=== PATIENT | female | born 1955 | race Hispanic/Latino ===

== ENCOUNTER 2018-09-05 15:50 | Emergency (ER) | payer OTHER ==
--- OUTSIDE RECORDS SUMMARY | 2018-09-05 15:51 | XMS REPORT ---
:1955 Author Organization eClinicalWorks Care Team Providers Name Role Phone Thompson, Na Provider Role Unavailable Allergies, Adverse Reactions, Alerts Substance Reaction Event Type N.K.D.A. 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 Problem Mixed hyperlipidemia E78.2 Active Problem BMI 26.0-26.9,adult Z68.26 Active Assessment On statin therapy Z79.899 Active Problem On statin therapy Z79.899 Active Assessment Hemoglobin A1C greater than 9%, R73.09 Active indicating poor diabetic control Problem Osteoarthritis of multiple joints, M15.9 Active unspecified osteoarthritis type Problem Hyperglycemia R73.9 Active Problem Fatty liver K76.0 Active Problem Hemoglobin A1C greater than 9%, R73.09 Active indicating poor diabetic control Problem Essential hypertension I10 Active Assessment Fatty liver K76.0 Active Assessment Osteoarthritis of multiple joints, M15.9 Active unspecified osteoarthritis type Assessment BMI 26.0-26.9,adult Z68.26 Active Assessment Hyperglycemia R73.9 Active Assessment 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 Assessment Type 2 diabetes mellitus with E11.41 Active diabetic mononeuropathy Assessment Mixed hyperlipidemia E78.2 Active Assessment Essential hypertension I10 Active Problem Type 2 diabetes mellitus with E11.41 Active diabetic mononeuropathy Medications Medication Code Code Instructions Start End Status Dosage System Date Date Diclofenac ND 49677386233 1 % Transdermal Jul 01, Active as directed Sodium twice a day as 2018 needed for pain Metformin HCl ND 17312527819 1000 MG Orally February Active 1 tablet twice a day 2017 with a meal Trulicity ND 92550725981 0.75mg/0.5ml SQ Jul 18, Active one once a week 2018 injection Lantus SoloStar ND 33911747168 100 UNIT/ML April 15, Active 50 units Subcutaneous 2018 once a day Gabapentin ND 33521683483 100 MG Orally Active 1 capsule Three times a day Cozaar [facility] 15376821950 50 MG Orally Active 1 tablet Once a day Lipitor [facility] 41214533702 20 MG Orally Active 1 tablet Once a day Glimepiride [facility] 87072734107 4 MG Orally April 15, Active 1 tablet Once a day 2017 with breakfast or the first main meal of the day Results No Known Results Summary Purpose eClinicalWorks Submission
--- OUTSIDE RECORDS SUMMARY | 2018-09-05 15:51 | XMS REPORT ---
:1955 Author Organization [employer]Works Care Team Providers Name Role Phone Thompson, Hamida Provider Role Unavailable Allergies, Adverse Reactions, Alerts Substance Reaction Event Type N.K.D.A. Info Not Available Non Drug Allergy Problems Problem Type Condition Code Onset Dates Condition Status Problem BMI 26.0-26.9,adult Z68.26 Active Problem Hemoglobin A1C greater than 9%, R73.09 Active indicating poor diabetic control Problem Osteoarthritis of multiple joints, M15.9 Active unspecified osteoarthritis type Problem Cervicalgia M54.2 Active Assessment Elevated blood pressure reading I10 Active with diagnosis of hypertension Problem Seasonal allergies J30.2 Active Assessment Cervicalgia M54.2 Active Assessment Seasonal allergies J30.2 Active Problem Acute effusion of left ear H65.192 Active Problem Benign paroxysmal positional H81.13 Active vertigo, bilateral Problem On statin therapy Z79.899 Active Problem History of fall Z91.81 Active Problem Elevated blood pressure reading I10 Active with diagnosis of hypertension Problem Diabetes mellitus type 2 in E11.9 Active nonobese Assessment Acute effusion of left ear H65.192 Active Assessment Benign paroxysmal positional H81.13 Active vertigo, bilateral Problem Fatty liver K76.0 Active Problem Hyperglycemia R73.9 Active Assessment BMI 27.0-27.9,adult Z68.27 Active Problem Mixed hyperlipidemia E78.2 Active Problem Essential hypertension I10 Active Assessment History of fall Z91.81 Active 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 Problem Type 2 diabetes mellitus with E11.41 Active diabetic mononeuropathy Medications Medication Code Code Instructions Start End Status Dosage System Date Date Cozaar [facility] 06624168272 50 MG Orally Active 1 tablet Once a day Lipitor ND 05677245047 20 MG Orally Active 1 tablet Once a day Trulicity ND 67609447825 0.75mg/0.5ml SQ Jul 18, Active one once a week 2017 injection Gabapentin ND 04376458694 100 MG Orally Active 1 capsule Three times a day Diclofenac [facility] 16203779068 1 % Transdermal Aug 06, Active as directed Sodium twice a day as 2018 needed for pain Meclizine HCl [facility] 57422400397 25 MG Orally Aug 09, Active 1 tablet as twice a day 2017 needed Lantus SoloStar [facility] 46503086278 100 UNIT/ML April 15, Active 50 units Subcutaneous 2017 once a day Glimepiride [facility] 42122607720 4 MG Orally April 15, Active 1 tablet Once a day 2017 with breakfast or the first main meal of the day Metformin HCl [facility] 21447187367 1000 MG Orally February Active 1 tablet twice a day 2017 with a meal Cetirizine HCl [facility] 99734654325 10 MG Orally Aug 09, Active 1 tablet Once a day 2017 Flonase [facility] 21027687393 50 MCG/ACT Aug 09, Active 2 spray in Nasally Once a 2018 each nostril day Results No Known Results Summary Purpose eClinicalWorks Submission
--- OUTSIDE RECORDS SUMMARY | 2018-09-05 15:51 | XMS REPORT ---
:1955 Author Organization [employer]Works Care Team Providers Name Role Phone Thompson, Na Provider Role Unavailable Allergies, Adverse Reactions, Alerts Substance Reaction Event Type N.K.D.A. Info Not Available Non Drug Allergy Problems Problem Type Condition Code Onset Dates Condition Status Assessment Essential hypertension I10 Active Assessment Type 2 diabetes mellitus with E11.41 Active diabetic mononeuropathy Assessment snf current use of insulin Z79.4 Active Problem Hyperglycemia R73.9 Active Problem Fatty liver K76.0 Active Problem Essential hypertension I10 Active Problem Diabetes mellitus type 2 in nonobese E11.9 Active Problem Type 2 diabetes mellitus with E11.41 Active diabetic mononeuropathy Problem snf current use of insulin Z79.4 Active Problem Mixed hyperlipidemia E78.2 Active Assessment Hyperglycemia R73.9 Active Assessment Fatty liver K76.0 Active Assessment Mixed hyperlipidemia E78.2 Active Medications Medication Code Code Instructions Start End Status Dosage System Date Date Cozaar [facility] 15587604130 50 MG Orally Active 1 tablet Once a day Glimepiride ND 92463072665 4 MG Orally April 15, Active 1 tablet Once a day 2017 with breakfast or the first main meal of the day Gabapentin ND 10497579020 100 MG Orally Active 1 capsule Three times a day Metformin HCl ND 45761032848 1000 MG Orally February Active 1 tablet twice a day 2017 with a meal Lipitor ND 84291325522 20 MG Orally Active 1 tablet Once a day Lantus SoloStar ND 28831567661 100 UNIT/ML April 15, Active as directed Subcutaneous 55 2018 units Results No Known Results Summary Purpose eClinicalWorks Submission
--- NOTE | 2018-09-05 16:33 | RAD REPORT ---
EXAM DESCRIPTION: CT - Head Brain Wo Cont - 09/05/2018 4:24 pm CLINICAL HISTORY: Headache COMPARISON: None. TECHNIQUE: Computed axial tomography of the head was obtained. IV contrast was not requested. All CT scans are performed using dose optimization technique as appropriate and may include automated exposure control or mA/KV adjustment according to patient size. FINDINGS: An intracranial bleed is not seen . The ventricles are normal in caliber. No extra-axial fluid collection is noted. Fluid within the sinuses/ mastoids is not seen. IMPRESSION: No acute intracranial abnormality is seen. If patient's symptoms persist MRI of the bra in would be recommended.
--- NOTE | 2018-09-05 16:36 | RAD REPORT ---
EXAM DESCRIPTION: Shakir Single View09/05/2018 4:31 pm CLINICAL HISTORY: fever COMPARISON: none FINDINGS: The lungs appear clear of acute infiltrate. The heart is normal size IMPRESSION: No acute abnormalities displayed
[2018-09-05] MEDS ORDERED: MORPHINE 4 MG/ML SYR ONE (17:10)
[2018-09-05] MEDS ORDERED: ONDANSETRON 4 MG/2 ML VIAL ONE (17:10)
[2018-09-05 17:25] LABS: Absolute Lymphocytes (CBC) 2.7 K/uL (0.7-4.9); Absolute Monocytes 1.1 K/uL (0.1-1.3); Absolute Neutrophil 9.9 K/uL (1.8-8.0); Basophils % 0.8 % (0-1.3); Eosinophils % 0.5 % (0-4.4); Hematocrit 37.7 % (36.0-45.0); Lymphocytes % 19.7 % (15.3-44.8); MCH 29.5 pg (27.0-35.0); MCV 85.8 fL (80-100); MPV 11.8 fL (7.6-11.3); Monocytes % 8.1 % (3.3-12.3)
[2018-09-05 17:37] LABS: Potassium 3.8 mmol/L (3.5-5.1)
[2018-09-05] MEDS ORDERED: VANCOMYCIN 1 GM/250 ML BAG ONE (18:31)
[2018-09-05 18:48] LABS: Urine Blood TRACE (NEG); Urine Glucose NEGATIVE (NEG); Urine Protein 1+ (NEG); Urine pH 5.5 (5.0-7.0)
[2018-09-05 19:38] LABS: CSF Glucose 78 mg/dL (40-70)
[2018-09-05 19:41] LABS: Appearance CLEAR (CLEAR); Body Fluid Source CSF; Color of fluid Colorless (COLORLESS)
[2018-09-05 19:42] LABS: Body Fluid WBC 0 /mm^3
[2018-09-05 19:43] LABS: Appearance CLEAR (CLEAR); Body Fluid Source CSF; Body Fluid WBC 0 /mm^3; Color of fluid Colorless (COLORLESS); Fluid Total Volume 4.5 ml
[2018-09-05] MEDS ORDERED: CEFTRIAXONE/SWI 1gm 1 GM/10 ML SYR ONE (20:44)
--- NOTE | 2018-09-05 20:53 | ER ---
Nurse's Notes [facility] Name: Rowan Stubbs Age: 63 yrs Sex: Female : 1955 Arrival Date: 09/05/2018 Time: 15:52 Bed 25 Private MD: Hamida Thompson Diagnosis: Strain of muscle, fascia and tendon at neck level;Urinary tract infection, site not specified Presentation: 09/05 15:56 Presenting complaint: Patient states: neck pain/stiffness, fever. Sent by Dr Thompson's sv office, flu (-). Transition of care: patient was not received from another setting of care. Onset of symptoms was September 03, 2018. Care prior to arrival: None. 15:56 Method Of Arrival: Ambulatory sv 15:56 Acuity: GUICHO 3 sv 16:05 Risk Assessment: Do you want to hurt yourself or someone else? Patient reports no kr2 desire to harm self or others. Initial Sepsis Screen: Does the patient meet any 2 criteria? No. Patient's initial sepsis screen is negative. Does the patient have a suspected source of infection? No. Patient's initial sepsis screen is negative. Triage Assessment: 16:05 Headache History: The patient has had previous headaches and this one is different than kr2 previous episodes. General: Appears in no apparent distress. uncomfortable, Behavior is calm, cooperative, appropriate for age. Pain: Pain began Sunday Also complains of inability to perform activities of daily living. Pain: Complains of pain in neck Pain radiates to back of head. Historical: - Allergies: 15:59 PENICILLINS; sv - PMHx: 15:59 Diabetes - IDDM; chronic back pain; insomnia; fatty liver; Hyperlipidemia; sv osteoarthritis; allergic rhinitis; - PSHx: 15:59 Right shoulder surgery; Hernia repair; ; breast; ovarian cyst removed; sv Hysterectomy; - Immunization history:: Adult Immunizations unknown. - Social history:: Smoking status: Patient/guardian denies using tobacco. - Ebola Screening: : No symptoms or risks identified at this time. Screenin:05 Abuse screen: Denies threats or abuse. Denies injuries from another. Nutritional kr2 screening: No deficits noted. Tuberculosis screening: No symptoms or risk factors identified. Fall Risk None identified. Assessment: 16:05 General: Appears in no apparent distress. uncomfortable, well groomed, well developed, kr2 well nourished. Pain: Complains of pain in neck Pain radiates to back of head Pain currently is 10 out of 10 on a pain scale. Quality of pain is described as aching, tender, Is continuous, Alleviated by rest, Aggravated by increased activity, repositioning. Neuro: Level of Consciousness is awake, alert, obeys commands, Oriented to person, place, time, situation, Certified Pharmacy Technician are equal bilaterally Moves all extremities. Gait is steady, Speech is normal, Facial symmetry appears normal, Pupils are PERRLA, Intact. Cardiovascular: Capillary refill < 3 seconds in bilateral fingers Patient's skin is warm and dry. Respiratory: Airway is patent Respiratory effort is even, unlabored, Respiratory pattern is regular, symmetrical. Respiratory: Reports cough that is non-productive, since Sunday. GI: Abdomen is flat, non-distended, Patient currently denies nausea, vomiting. : Denies burning with urination. EENT: Oral mucosa is moist. Derm: Skin is intact, is healthy with good turgor, Skin is pink, warm \T\ dry. Musculoskeletal: Circulation, motion, and sensation intact. 16:20 Reassessment: Patient taken to CT by gameroom technician at this time. kr2 17:30 Reassessment: Patient appears in no apparent distress at this time. Patient and/or kr2 family updated on plan of care and expected duration. Pain level reassessed. Patient is alert, oriented x 3, equal unlabored respirations, skin warm/dry/pink. Pain decreased. 17:44 Reassessment: Tran Patel NP performing LP at this time. Vanc to be started when LP is kr2 completed. 18:36 Reassessment: Patient appears in no apparent distress at this time. Patient and/or kr2 family updated on plan of care and expected duration. Pain level reassessed. Patient is alert, oriented x 3, equal unlabored respirations, skin warm/dry/pink. Patient states she does not need any pain medication at this time. Patient lying flat at this time after LP completed Patient states symptoms have improved. 19:33 Reassessment: Patient appears in no apparent distress at this time. Patient and/or kr2 family updated on plan of care and expected duration. Pain level reassessed. Patient is alert, oriented x 3, equal unlabored respirations, skin warm/dry/pink. Patient states symptoms have improved. 20:43 Reassessment: Patient appears in no apparent distress at this time. Patient and/or kr2 family updated on plan of care and expected duration. Pain level reassessed. Patient is alert, oriented x 3, equal unlabored respirations, skin warm/dry/pink. Vital Signs: 16:00 BP 156 / 58; Pulse 83; Resp 18; Temp 99.4(TE); Pulse Ox 98% ; Weight 62.6 kg; Height 4 sv ft. 11 in. (149.86 cm); 17:44 BP 164 / 60; Pulse 95; Resp 17; Pulse Ox 95% on R/A; kr2 18:36 BP 145 / 57; Pulse 77; Resp 17; Pulse Ox 99% ; kr2 19:33 BP 147 / 60; Pulse 77; Resp 17; Pulse Ox 96% on R/A; kr2 20:42 BP 130 / 59; Pulse 78; Resp 17; Pulse Ox 99% ; kr2 16:00 Body Mass Index 27.87 (62.60 kg, 149.86 cm) sv ED Course: 15:52 Patient arrived in ED. as 15:52 Mable Kelsey MD is Private Physician. as 15:52 Hamida Thompson MD is Private Physician. as 15:58 Triage completed. sv 15:59 Arm band placed on. sv 16:05 Patient has correct armband on for positive identification. Placed in gown. Bed in low kr2 position. Call light in reach. Side rails up X 1. Adult w/ patient. Pulse ox on. NIBP on. Door closed. Verbal reassurance given. Head of bed elevated. 16:10 Maik Baig MD is Attending Physician. kdr 16:18 Ema Hector, JERI is Primary Nurse. kr2 16:24 CT completed. Patient tolerated procedure well. Patient moved to CT. Patient moved back from CT. 16:25 CT Head Brain wo Cont In Process Unspecified. EDMS 16:32 CXR XRAY In Process Unspecified. EDMS 17:00 Inserted saline lock: 20 gauge in left antecubital area, using aseptic technique. Blood kr2 collected. 17:00 First set of blood cultures drawn by me. kr2 17:15 Second set of blood cultures drawn by me. kr2 17:20 Consent for a lumbar puncture explained by staff, explained by physician, signed by kr2 patient. 18:07 Assist provider with lumbar puncture: Set up LP tray. Performed by Mina Patel NP jp3 CSF is clear. Sample collected. Puncture site dressed with band aid, Procedure was successful. Patient tolerated well. 19:30 Jersey Melendez PA is PHCP. cp 20:51 Hamida Thompson MD is Referral Physician. cp 21:17 IV discontinued, intact, bleeding controlled, No redness/swelling at site. Pressure kr2 dressing applied. Administered Medications: 17:07 Drug: morphine 4 mg Route: IVP; Site: left antecubital; kr2 17:30 Follow up: Response: No adverse reaction; Pain is decreased kr2 17:08 Drug: Zofran 4 mg Route: IVP; Site: left antecubital; kr2 17:30 Follow up: Response: No adverse reaction kr2 18:25 Drug: vancoMYCIN 1 grams Route: IVPB; Infused Over: 2 hrs; Site: left antecubital; kr2 20:30 Follow up: Response: No adverse reaction; IV Status: Completed infusion kr2 20:41 Drug: Rocephin - (cefTRIAXone) 1 grams Route: IVPB; Infused Over: 30 mins; Site: left kr2 antecubital; 21:14 Follow up: Response: No adverse reaction; IV Status: Completed infusion kr2 21:16 Drug: TORadol 30 mg Route: IVP; Site: left antecubital; kr2 21:16 Follow up: Response: Medication administered at discharge. kr2 Outcome: 20:52 Discharge ordered by . cp 21:17 Discharged to home via wheelchair, with family. kr2 21:17 Condition: good 21:17 Discharge instructions given to patient, family, Instructed on discharge instructions, follow up and referral plans. medication usage, Demonstrated understanding of instructions, follow-up care, medications, Prescriptions given X 4. 21:20 Patient left the ED. kr2 Addendum: 09/09/2018 07:41 Addendum: Culture Results: Positive urine culture. No further action required. Bacteria h b sensitive to prescribed antibiotic. Signatures: Dispatcher [employer] Brittney Tee RN RN sv Rittger, Kevin, MD MD kdr Jones, Susan sj Martinez, Amelia as Jersey Melendez PA PA cp Baxter, Heather, RN RN Ema Hector RN RN kr2 Edilson Mcintyre jp3 Corrections: (The following items were deleted from the chart) 09/05 18:31 17:44 Reassessment: Tran Patel NP performing LP at this time kr2 kr2 18:37 18:36 Reassessment: Patient appears in no apparent distress at this time. Patient kr2 and/or family updated on plan of care and expected duration. Pain level reassessed. Patient is alert, oriented x 3, equal unlabored respirations, skin warm/dry/pink. Patient states she does not need any pain medication at this time Patient states symptoms have improved. kr2
--- NOTE | 2018-09-05 20:53 | EDPHYS ---
Physician Documentation [facility] Name: Rowan Stubbs Age: 63 yrs Sex: Female : 1955 Arrival Date: 09/05/2018 Time: 15:52 Bed 25 Private MD: Hamida Thompson ED Physician Maik Baig HPI: 09/05 16:30 This 63 yrs old Female presents to ER via Ambulatory with complaints of Fever, cp Headache, Stiff Neck. 16:30 The patient reports fever, not measured (subjective). cp 16:30 Onset: The symptoms/episode began/occurred 2 day(s) ago. Associated signs and symptoms: cp Pertinent positives: headache, neck stiffness. Severity of symptoms: in the emergency department the symptoms are unchanged despite home interventions. Patient referred from office of DR Thompson to r/o meningitis. Historical: - Allergies: 15:59 PENICILLINS; sv - PMHx: 15:59 Diabetes - IDDM; chronic back pain; insomnia; fatty liver; Hyperlipidemia; sv osteoarthritis; allergic rhinitis; - PSHx: 15:59 Right shoulder surgery; Hernia repair; ; breast; ovarian cyst removed; sv Hysterectomy; - Immunization history:: Adult Immunizations unknown. - Social history:: Smoking status: Patient/guardian denies using tobacco. - Ebola Screening: : No symptoms or risks identified at this time. ROS: 16:35 Constitutional: Negative for fever, poor PO intake. cp 16:35 Eyes: Negative for injury, pain, redness, and discharge. cp 16:35 Neck: Positive for stiffness. 16:35 Cardiovascular: Negative for chest pain, edema, palpitations. 16:35 Respiratory: Negative for cough, shortness of breath, wheezing. 16:35 Neuro: Positive for headache, Negative for altered mental status. 16:35 All other systems are negative. Exam: 16:40 Constitutional: The patient appears in no acute distress, alert, awake, cp non-diaphoretic, well developed, well nourished. 16:40 Head/Face: Normocephalic, atraumatic. cp 16:40 Eyes: Periorbital structures: appear normal, Pupils: equal, round, and reactive to light and accomodation, Conjunctiva: normal, no exudate, no injection, Sclera: no appreciated abnormality, Lids and lashes: appear normal, bilaterally. 16:40 ENT: External ear(s): are unremarkable, Nose: is normal, Mouth: Lips: moist, Oral mucosa: moist, Posterior pharynx: is normal, airway is patent, Voice: is normal. 16:40 Neck: ROM/movement: pain, that is moderate, limited range of motion, is not appreciated. 16:40 Chest/axilla: Inspection: normal, Palpation: is normal, no crepitus, no tenderness. 16:40 Cardiovascular: Rate: normal, Rhythm: regular. 16:40 Respiratory: the patient does not display signs of respiratory distress, Respirations: normal, no use of accessory muscles, no retractions, no splinting, no tachypnea, labored breathing, is not present, Breath sounds: are clear throughout, no decreased breath sounds, no stridor, no wheezing. 16:40 Abdomen/GI: Inspection: abdomen appears normal, Palpation: abdomen is soft and non-tender, in all quadrants. 16:40 Skin: cellulitis, is not appreciated, no rash present. 16:40 Neuro: Orientation: to person, place \T\ time. Mentation: lucid, able to follow commands, Motor: moves all fours, strength is normal, Sensation: no obvious gross deficits. Vital Signs: 16:00 BP 156 / 58; Pulse 83; Resp 18; Temp 99.4(TE); Pulse Ox 98% ; Weight 62.6 kg; Height 4 sv ft. 11 in. (149.86 cm); 17:44 BP 164 / 60; Pulse 95; Resp 17; Pulse Ox 95% on R/A; kr2 18:36 BP 145 / 57; Pulse 77; Resp 17; Pulse Ox 99% ; kr2 19:33 BP 147 / 60; Pulse 77; Resp 17; Pulse Ox 96% on R/A; kr2 20:42 BP 130 / 59; Pulse 78; Resp 17; Pulse Ox 99% ; kr2 16:00 Body Mass Index 27.87 (62.60 kg, 149.86 cm) sv Procedures: 18:20 Lumbar Puncture: Patient placed in right lateral decubitus position. Prepped with pm1 Betadine. Draped using sterile technique. Collected 4 ml's of clear fluid. Sample sent to lab. Puncture site dressed with band aid, Patient tolerated well. MDM: 19:30 Patient medically screened. cp 20:05 Data reviewed: vital signs, nurses notes, lab test result(s), radiologic studies, CT cp scan, plain films. 09/05 16:12 Order name: CBC with Diff kdr 09/05 16:12 Order name: Chem 7 kdr 09/05 16:12 Order name: Blood Culture Adult (2) kdr 09/05 16:12 Order name: Urine Culture kdr 09/05 16:12 Order name: CBC with Automated Diff; Complete Time: 19:21 EDNV 09/05 20:01 Interpretation: Normal except: WBC 13.9; MPV 11.8. 09/05 16:12 Order name: Basic Metabolic Panel; Complete Time: 19:21 EDMS 09/05 19:31 Interpretation: Normal except: GLUC 123; GFR 84. 09/05 16:12 Order name: CXR XRAY; Complete Time: 17:11 kdr 09/05 16:12 Order name: CT Head Brain wo Cont; Complete Time: 17:11 kdr 09/05 17:57 Order name: Urine Dipstick--Ancillary (enter results); Complete Time: 19:21 eb 09/05 20:01 Interpretation: Normal except: UBLD TRACE; UPROT 1+; U NIT POSITIVE; UESTR 1+. 09/05 18:18 Order name: CSF Bacterial Antigens (tube 1); Complete Time: 20:00 pm1 09/05 18:18 Order name: Csf Culture [facility] 09/05 18:18 Order name: Fluid Cell Count,Body; Complete Time: 20:00 pm1 09/05 18:18 Order name: Spinal Fluid Profile; Complete Time: 20:00 pm1 09/05 20:01 Interpretation: Normal except: CSF GLUC 78. 09/05 19:31 Order name: Urine Microscopic Only; Complete Time: 02:48 09/06 02:48 Interpretation: Normal except: UBACT LOADED. 09/05 16:12 Order name: Urine Dipstick-Ancillary (obtain specimen); Complete Time: 17:29 kdr 09/05 16:49 Order name: Lumbar Puncture Setup; Complete Time: 17:23 kdr 09/05 16:49 Order name: Lumbar Puncture Consent; Complete Time: 17:23 kdr Administered Medications: 17:07 Drug: morphine 4 mg Route: IVP; Site: left antecubital; kr2 17:30 Follow up: Response: No adverse reaction; Pain is decreased kr2 17:08 Drug: Zofran 4 mg Route: IVP; Site: left antecubital; kr2 17:30 Follow up: Response: No adverse reaction kr2 18:25 Drug: vancoMYCIN 1 grams Route: IVPB; Infused Over: 2 hrs; Site: left antecubital; kr2 20:30 Follow up: Response: No adverse reaction; IV Status: Completed infusion kr2 20:41 Drug: Rocephin - (cefTRIAXone) 1 grams Route: IVPB; Infused Over: 30 mins; Site: left kr2 antecubital; 21:14 Follow up: Response: No adverse reaction; IV Status: Completed infusion kr2 21:16 Drug: TORadol 30 mg Route: IVP; Site: left antecubital; kr2 21:16 Follow up: Response: Medication administered at discharge. kr2 Disposition: 09/05/18 20:52 Discharged to Home. Impression: Strain of muscle, fascia and tendon at neck level, Urinary tract infection, site not specified. - Condition is Stable. - Discharge Instructions: Musculoskeletal Pain, Urinary Tract Infection, Adult. - Prescriptions for Anaprox DS 550 mg Oral Tablet - take 1 tablet by ORAL route every 12 hours As needed; 20 tablet. Cyclobenzaprine 10 mg Oral Tablet - take 1 tablet by ORAL route every 8 hours As needed no driving while taking medication; 20 tablet. Bactrim DS 800- 160 mg Oral Tablet - take 1 tablet by ORAL route every 12 hours for 7 days; 14 tablet. Tramadol 50 mg Oral Tablet - take 1 tablet by ORAL route every 8 hours as needed; 12 tablet. - Medication Reconciliation Form, Thank You Letter, Antibiotic Education, Prescription Opioid Use form. - Follow up: Hamida Thompson MD; When: 2 - 3 days; Reason: Recheck today's complaints. - Problem is new. - Symptoms have improved. Addendum: 09/07/2018 13:38 Co-signature as Attending Physician, Maik Baig MD I agree with the assessment and k dr plan of care. Signatures: Dispatcher [employer] EDBrittney Valerio RN RN sv Rittger, Kevin, MD MD kdr [place] Melendez PA PA cp Mina Patel, CONTACT [employer] CONTACT [employer]FFER pm1 Ema Hector RN RN kr2 Corrections: (The following items were deleted from the chart) 09/05 21:20 20:52 09/05/2018 20:52 Discharged to Home. Impression: Strain of muscle, fascia and kr2 tendon at neck level; Urinary tract infection, site not specified. Condition is Stable. Forms are Medication Reconciliation Form, Thank You Letter, Antibiotic Education, Prescription Opioid Use. Follow up: Hamida Thompson; When: 2 - 3 days; Reason: Recheck today's complaints. Problem is new. Symptoms have improved. cp
[2018-09-05] MEDS ORDERED: KETOROLAC 30 MG/ML INJ ONE (21:15)
[2018-09-05 21:47] LABS: Urine Bacteria LOADED /HPF (<20); Urine Culture Reflex Order REFLEXED; Urine RBC NONE SEEN /HPF (NONE SEEN)
== END 2018-09-05 21:20 | disposition home or self-care (01) ==
LOC: ER 15:50
PROC: 009U3ZX Drainage of Spinal Canal, Percutaneous Approach, Diagnostic (ICD-10-PCS; principal; 2018-09-05)
DX: N39.0 Urinary tract infection, site not specified (principal); S16.1XXA Strain of muscle, fascia and tendon at neck level, initial encounter; Z88.0 Allergy status to penicillin
CPT/HCPCS: 36415; 62270 ×2; 70450; 71045; 80048; 82945; 84157; 85025; 86403 ×6; 87040 ×2; 87070; 87077; 87086; 87088; 87186; 89050 ×2; 96365; 96366; 96367; 96375; 99285; J0696; J2405; J3370; 81003; 81015

== ENCOUNTER 2023-04-28 13:39 | Inpatient (IN) | payer OTHER ==
--- OUTSIDE RECORDS SUMMARY | 2023-04-28 13:47 | XMS REPORT | Continuity of Care Document ---
:1955 Author Organization [facility] t Address [address] [place] [address] Care Team Providers Name Role Phone NELDA DUQUE Primary Care Physician Unavailable Lucy Ramirez Attending Clinician Unavailable Nelda Duque Attending Clinician Unavailable Hamida Thompson L Attending Clinician Unavailable GUY WALSH Attending Clinician Unavailable Guy Walsh MD Attending Clinician RADIOLOGY Attending Clinician Unavailable Radiology Attending Clinician Unavailable CLAY DRUMMOND Attending Clinician Unavailable Doctor Unassigned, [place] Attending Clinician Unavailable Ava Conner DDS Attending Clinician AVA CONNER Attending Clinician Unavailable Emily Harrell RN Attending Clinician Unavailable GABRIEL ROCHA Attending Clinician Unavailable Gabriel Jarvis S Attending Clinician Maik Tinajero Attending Clinician MAIK LEWIS Attending Clinician Unavailable GUY WALSH Admitting Clinician Unavailable AVA CONNER Admitting Clinician Unavailable Ava Conner DDS Admitting Clinician MAIK LEWIS Admitting Clinician Unavailable Payers Payer Name Policy Type Policy Number Effective Date Expiration Date caden [facility] [id number] 2017spring [facility] [id number] 2020 Common Sp alisson ing [id number] Common Sp alisson ing Medicare 00:00:00 [facility] Problems Condition Condition Condition Status Onset Resolution Last Treating Co mments Source Name Details Category Date Date Treatment Clinician Date Facial Facial Disease Active Univers abscess abscess 4-14 ity of 00:00: [place] 00 Medical Branch Uncontroll Uncontroll Disease Active 2014-11 U nivers ed type 2 ed type 2 2-14 ity of diabetes diabetes 00:00: [place] mellitus mellitus 00 Medica l Branch [id number] long-term Problem Com mon (current) Spirit use of - CHI insulin [facility] [id number] Osteoarthr Problem Co mmon itis of Spirit spine with - CHI radiculopa [facility] lumbar Medical region Center [id number] History of Problem Co mmon fall [facility] [id number] Essential Problem Comm on hypertensi Spirit on - [facility] [id number] Cervicalgi Problem Com mon a [facility] [id number] Hyperglyce Problem Com mon feliz [facility] [id number] 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 [facility] kidney Medical complicati Center on [id number] Fatty Problem Common liver [facility] [id number] 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 Spirit [facility], [facility] d cataract type [id number] Diabetic Problem Comm on retinopath Spirit y - CHI associated St with type [facility] 2 diabetes Medica l mellitus, Center macular edema presence unspecifie d, unspecifie d laterality , unspecifie d retinopath y severity [id number] Glaucoma, Problem Comm on unspecifie Spirit d glaucoma - CHI type, St unspecie [facility] Medical laterality Center [id number] Stress at Problem Com mon home Spirit [facility] [id number] Proteinuri Problem Com mon a, Spirit unspecifie - CHI d [facility] Type 2 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 - CHI with with St moderate moderate [facility] 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 eyes without without macular macular edema, edema, unspecifie unspecifie d long d penitentiary term insulin insulin use status use status [id number] Irregular Problem Com mon heart Spirit beats - [facility] [id number] Celiac Problem Commo n [id number] artery Spirit stenosis - [facility] [id number] PUD Problem Common (peptic Spirit ulcer - CHI disease) [facility] Chronic Chronic Problem Common back pain back pain Spir it - CHI [facility] Visual Vision Problem Common testing screen Spirit normal without - CHI abnormal [facility] Osteoarthr Osteoarthr Problem C ommon itis itis [facility] [id number] Elevated Problem Commo n blood [facility] pressure - [facility] reading [facility] hypertensi on [id number] Benign Problem Common paroxysmal Spirit positional - [facility] vertigo, [facility] Seasonal Seasonal Problem Commo n allergy allergies [facility] [id number] Mixed Problem Common hyperlipid Spirit emia - [facility] [id number] Acute Problem Common effusion [facility] of left - CHI ear [facility] [id number] Diabetes Problem Comm on mellitus Spirit type 2 in - [facility] nonobese [facility] [id number] Type 2 Problem Common diabetes Spirit mellitus - CHI with [facility] Hyperlipid Hyperlipid Problem C ommon emia emia [facility] [id number] Sciatica, Problem Co mmon [id number] right side Spiri t - [facility] Allergic Allergic Problem Commo n rhinitis rhinitis [facility] Type II Type 2 Problem Common diabetes diabetes [facility] Ins[facility] Insomnia Problem Commo n Spirit - CHI [facility] [id number] Screening Problem Com mon for Spirit malignant - CHI neoplasm [facility] 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 - CHI diabetes associated St mellitus with type [facility] 2 diabetes Medica l mellitus Center [id number] Sciatica, Problem Comm on left side Spirit - [facility] [id number] On statin Problem Com mon therapy Spirit - [facility] [id number] Varicose Problem Commo n veins of [facility] bilateral - CHI lower [facility] s with Medical pain Center [id number] Hemoglobin Problem C ommon [id number] A1C [facility] greater - CHI than 9%, [facility] Medical diabetic Center control [id number] Hip Pain Problem Commo n in [facility] unspecifie - CHI d hip [facility] Osteoarthr Osteoarthr Problem C ommon itis of itis of [facility] multiple multiple - CHI joints joints, [facility] d Medical osteoarthr Center itis type [id number] Lumbago Problem Commo n with Spirit sciatica, - CHI left side [facility] [id number] BMI Problem Common 26.0-26.9, [facility] adult - [facility] [id number] Influenza Problem Co mmon 9109 vaccinatio [facility] n - [facility] administer ed at [facility] current Medical visit Center [id number] Lumbago Problem Comm on with Spirit sciatica, - CHI right side [facility] Vaginal Vaginal Problem Common dryness dryness [facility] [id number] Non Problem Common compliance [facility] w - [facility] medication [facility] Allergies, Adverse Reactions, Alerts Allergy Allergy Status Severity Reaction(s) Onset Inactive Treating Comm ents Source Name Type Date Date Clinician Penicill Propensi Active Hives Univer s ins ty to 309 ity of adverse 00:00: [place] reaction 00 Medical s Branch PENICILL Drug Active Hives Univers INS Class 3-09 ity of 00:00: [place] [address] Medical Branch Penicill Propensi Active Hives Univer s ins ty to 309 ity of adverse 00:00: [place] reaction 00 Medical s [place] Social History Social Habit Start Date Stop Date Quantity Comments Source History of Common Spirit - Tobacco Use [facility] Sex Assigned At Common Sp alisson - [facility] Alcohol intake 2022-06-01 2022-06-01 Current University of 00:00:00 00:00:00 non-drinker of [facility] alcohol Branch (finding) Exposure to 2022-03-07 2022-03-17 Not sure University of SARS-CoV-2 00:00:00 13:43:00 [place] Medical (event) Branch Smoking Status Start Date Stop Date Source Never Smoker Common [facility] Medications Ordered Filled Start Stop Current Ordering Indication Dosage Frequency Signature Comments Components Source Medication Medication Date Date Medication? Clinician (SIG) Name Name Insulin Insulin No BID Insulin Syringe 31G Syringe 31G 2-03 Syringe X 5/16" 0.5 X 5/16" 0.5 00:00: 31G X ML ML 00 5/16" 0.5 ML iopamidol 2022- No [id number] 64mL 64 mL, U nivers (ISOVUE 1-27 Intravenou ity o f 370-500 mL) 20:45: 19:42 s, ONCE, 1 [place] injection 00 :00 dose, On Medica l 64 mL Fri Branch 12/22/22 at 1445, Routine metoclopram 0 Yes [id number] 10mg Take 1 Univers king HCl 10 -27 tablet by ity of mg tablet 00:00: mouth 00 every 6 Medical (six) Branch hours. dicyclomine Yes [id number] 20mg Take 1 Univers 20 mg -27 tablet by ity of tablet 00:00: mouth 4 00 (four) Medical times Branch daily. aspirin 81 2022-0 Yes [id number] 1{capsu Take 1 Univers mg Cap -27 le} capsule by ity of 00:00: mouth 00 daily. Medical Branch Vitamin D3 Vitamin D3 0 No 2{table QD Vitamin D3 50 MCG 50 MCG 7-13 t} 50 MCG (1999) (1999) 00:00: (1999) Calcium 600 Calcium 600 2021-0 No QD Calcium MG MG 7-13 600 MG 00:00: 00 Calcium 600 Calcium 600 2021-0 No QD Calcium MG MG 7-13 600 MG 00:00: 00 Vitamin D3 Vitamin D3 2021-0 No 2{table QD Vitamin D3 50 MCG 50 MCG 7-13 t} 50 MCG (1999) (1999) 00:00: (1999) Vitamin D3 Vitamin D3 2021-0 No 2{table QD Vitamin D3 50 MCG 50 MCG 7-13 t} 50 MCG (1999) (1999) 00:00: (1999) 00 Calcium 600 Calcium 600 2021-0 No QD Calcium MG MG 7-13 600 MG 00:00: 00 Vitamin D3 Vitamin D3 2022-0 No 2{table QD Vitamin D3 50 MCG 50 MCG 7-13 t} 50 MCG (1999) (1999) 00:00: (1999) 00 Calcium 600 Calcium 600 2-0 No QD Calcium MG MG 7-13 600 MG 00:00: 00 Vitamin D3 Vitamin D3 2022-0 No 2{table QD Vitamin D3 50 MCG 50 MCG 7-13 t} 50 MCG (1999) (1999) 00:00: (1999) 00 Calcium 600 Calcium 600 2-0 No QD Calcium MG MG 7-13 600 MG 00:00: 00 Calcium 600 Calcium 600 2-0 No QD Calcium MG MG 7-13 600 MG 00:00: 00 Vitamin D3 Vitamin D3 2-0 No 2{table QD Vitamin D3 50 MCG 50 MCG 7-13 t} 50 MCG (1999) (1999) 00:00: (1999) 00 Calcium 600 Calcium 600 2-0 No QD Calcium MG MG 7-13 600 MG 00:00: 00 Vitamin D3 Vitamin D3 2-0 No 2{table QD Vitamin D3 50 MCG 50 MCG 7-13 t} 50 MCG (1999) (1999) 00:00: (1999) 00 Calcium 600 Calcium 600 2-0 No QD Calcium MG MG 7-13 600 MG 00:00: 00 Vitamin D3 Vitamin D3 2-0 No 2{table QD Vitamin D3 50 MCG 50 MCG 7-13 t} 50 MCG (1999) (1999) 00:00: (1999) 00 Trulicity Trulicity 2021- No Trulicity 0.75 0.75 6-29 12-25 0.75 MG/0.5ML MG/0.5ML 00:00: 00:00 MG/0.5ML 00 :00 Trulicity Trulicity 2021-0 2021- No Trulicity 0.75 0.75 6-29 12-25 0.75 MG/0.5ML MG/0.5ML 00:00: 00:00 MG/0.5ML 00 :00 Trulicity Trulicity 2021- No Trulicity 0.75 0.75 6-29 12-25 0.75 MG/0.5ML MG/0.5ML 00:00: 00:00 MG/0.5ML 00 :00 Trulicity Trulicity 2021- No Trulicity 0.75 0.75 05-24 0.75 MG/0.5ML MG/0.5ML 00:00: 00:00 MG/0.5ML 00 :00 chlorhexidi 2021- No [id number] 15mL [place] and Univers ne 0.12 % 03-1709 spit out ity o f mouthwash 00:00: 04:59 15 [place] 2 [place] (two) Medical times Branch daily for 16 days. glimepiride Yes 4mg Take 4 mg U nivers (AMARYL) 4 4-15 by mouth ity o f mg tablet 20:51: [place] 28 breakfast. Medical Branch Tramadol Yes Take by Univer s (RYBIX ODT) 4-15 mouth. ity of 50 mg TbDL 20:51: [place] [address] Medical Branch glimepiride Yes 4mg Take 4 mg U nivers (AMARYL) 4 4-15 by mouth ity o f mg tablet 20:51: [place] 28 breakfast. Medical Branch Tramadol Yes Take by Univer s (RYBIX ODT) 4-15 mouth. ity of 50 mg TbDL 20:51: [place] [address] Medical Branch glimepiride Yes 4mg Take 4 mg U nivers (AMARYL) 4 4-15 by mouth ity o f mg tablet 20:51: [place] 28 breakfast. Medical Branch Tramadol Yes Take by Univer s (RYBIX ODT) 4-15 mouth. ity of 50 mg TbDL 20:51: [place] [address] Medical Branch glimepiride Yes 4mg Take 4 mg U nivers (AMARYL) 4 4-15 by mouth ity o f mg tablet 20:51: [place] 28 breakfast. Medical Branch Tramadol Yes Take by Univer s (RYBIX ODT) 4-15 mouth. ity of 50 mg TbDL 20:51: [place] [address] Medical Branch glimepiride Yes 4mg Take 4 mg U nivers (AMARYL) 4 4-15 by mouth ity o f mg tablet 20:51: [place] 28 breakfast. Medical Branch Tramadol Yes Take by Univer s (RYBIX ODT) 4-15 mouth. ity of 50 mg TbDL 20:51: [place] 28 Medical Branch chlorhexidi Yes [id number] 15mL Swish and Univers ne 0.12 % 4-15 spit out ity of mouthwash 00:00: 15 mL 2 [place] 00 (two) Medical times Branch daily. chlorhexidi Yes [id number] 15mL Swish and Univers ne 0.12 % 4-15 spit out ity of mouthwash 00:00: 15 mL 2 [place] 00 (two) Medical times Branch daily. chlorhexidi Yes [id number] 15mL Swish and Univers ne 0.12 % 4-15 spit out ity of mouthwash 00:00: 15 mL 2 [place] 00 (two) Medical times Branch daily. chlorhexidi Yes [id number] 15mL Swish and Univers ne 0.12 % 4-15 spit out ity of mouthwash 00:00: 15 mL 2 [place] 00 (two) Medical times Branch daily. chlorhexidi Yes [id number] 15mL Swish and Univers ne 0.12 % 4-15 spit out ity of mouthwash 00:00: 15 mL 2 [place] 00 (two) Medical times Branch daily. clindamycin 2021- No [id number] 300mg Take 2 Univers 150 mg -15 -23 capsules ity of capsule 00:00: 04:59 by mouth 4 [place] as 00 :00 (four) Medical times Branch daily for 7 days. metroNIDAZO 2021-2021- No [id number] 500mg Take 1 Univers LE (FLAGYL) -10 03- tablet by it y of 500 mg 00:00: 04:59 mouth [place] tablet 00 :00 every 12 Medical (twelve) Branch hours for 7 days. vancomycin 2021-2021- No [id number] 125mg Take 1 Univers 125 mg -10 03- capsule by ity of capsule 00:00: 04:59 mouth 4 [place] 00 :00 (four) Medical times Branch daily for 7 days. ibuprofen 2021-2021- No [id number] 600mg Take 1 Univers 600 mg 03-10 tablet by ity of tablet 00:00: 04:59 mouth [place] 00 :00 every 6 Medical (six) Branch hours as needed for Alternate with Mobile for pain scale 4-6 for up to 5 days. HYDROcodone 2021-2021- No [id number] 1{tbl} Take 1 U nivers -acetaminop 03-10 tablet by it y of hen (NORCO) 00:00: 04:59 mouth [place] 7.5-325 mg 00 :00 every 6 Medica l per tablet (six) Branch hours as needed for Pain for up to 4 days. Indication s: acute pain HumuLIN HumuLIN 2022-0 No QD HumuLIN 70/30 70/30 - 70/30 (70-30) 100 (70-30) 100 00:00: (70-30) UNIT/ML UNIT/ML 00 100 UNIT/ML HumuLIN HumuLIN 2022-0 No QD HumuLIN 70/30 70/30 - 70/30 (70-30) 100 (70-30) 100 00:00: (70-30) UNIT/ML UNIT/ML 00 100 UNIT/ML HumuLIN HumuLIN 2022-0 No QD HumuLIN 70/30 70/30 - 70/30 (70-30) 100 (70-30) 100 00:00: (70-30) UNIT/ML UNIT/ML 00 100 UNIT/ML HumuLIN HumuLIN 2022-0 No QD HumuLIN 70/30 70/30 - 70/30 (70-30) 100 (70-30) 100 00:00: (70-30) UNIT/ML UNIT/ML 00 100 UNIT/ML HumuLIN HumuLIN 2022-0 No QD HumuLIN 70/30 70/30 - 70/30 (70-30) 100 (70-30) 100 00:00: (70-30) UNIT/ML UNIT/ML 00 100 UNIT/ML HumuLIN HumuLIN 2022-0 No QD HumuLIN 70/30 70/30 - 70/30 (70-30) 100 (70-30) 100 00:00: (70-30) UNIT/ML UNIT/ML 00 100 UNIT/ML HumuLIN HumuLIN 2022-0 No QD HumuLIN 70/30 70/30 4-05 70/30 (70-30) 100 (70-30) 100 00:00: (70-30) UNIT/ML UNIT/ML 00 100 UNIT/ML HumuLIN HumuLIN 2022-0 No QD HumuLIN 70/30 70/30 4-05 70/30 (70-30) 100 (70-30) 100 00:00: (70-30) UNIT/ML UNIT/ML 00 100 UNIT/ML HumuLIN HumuLIN 2022-0 No QD HumuLIN 70/30 70/30 4-05 70/30 (70-30) 100 (70-30) 100 00:00: (70-30) UNIT/ML UNIT/ML 00 100 UNIT/ML HumuLIN HumuLIN 2022-0 No QD HumuLIN 70/30 70/30 4-05 70/30 (70-30) 100 (70-30) 100 00:00: (70-30) UNIT/ML UNIT/ML 00 100 UNIT/ML HumuLIN HumuLIN 2022-0 No QD HumuLIN 70/30 70/30 4-05 70/30 (70-30) 100 (70-30) 100 00:00: (70-30) UNIT/ML UNIT/ML 00 100 UNIT/ML HumuLIN HumuLIN 2022-0 No QD HumuLIN 70/30 70/30 4-05 70/30 (70-30) 100 (70-30) 100 00:00: (70-30) UNIT/ML UNIT/ML 00 100 UNIT/ML HumuLIN HumuLIN 2022-0 No QD HumuLIN 70/30 70/30 4-05 70/30 (70-30) 100 (70-30) 100 00:00: (70-30) UNIT/ML UNIT/ML 00 100 UNIT/ML HumuLIN HumuLIN 2022-0 No QD HumuLIN 70/30 70/30 4-05 70/30 (70-30) 100 (70-30) 100 00:00: (70-30) UNIT/ML UNIT/ML 00 100 UNIT/ML HumuLIN HumuLIN 2022-0 No BID HumuLIN 70/30 70/30 4-05 70/30 (70-30) 100 (70-30) 100 00:00: (70-30) UNIT/ML UNIT/ML 00 100 UNIT/ML Glimepiride Glimepiride 2-0 No 1{table Glimepirid 2 MG 2 MG 3-29 t} e 2 MG 00:00: 00 Trulicity Trulicity 2020-11- No Trulicity 0.75mg/0.5m 0.75mg/0.5m 12-04 12-09 0.75mg/0.5 l l 00:00: 00:00 ml 00 :00 FreeStyle FreeStyle 2021-0 No QD FreeStyle Lite Test - Lite Test - 3-30 Lite Test 00:00: - 00 FreeStyle FreeStyle 2021-0 No QD FreeStyle Lite Test - Lite Test - 3-30 Lite Test 00:00: - 00 FreeStyle FreeStyle 2021-0 No QD FreeStyle Lite Test - Lite Test - 3-30 Lite Test 00:00: - 00 FreeStyle FreeStyle 2021-0 No QD FreeStyle Lite Test - Lite Test - 3-30 Lite Test 00:00: - 00 FreeStyle FreeStyle 2021-0 No QD FreeStyle Lite Test - Lite Test - 3-30 Lite Test 00:00: - 00 FreeStyle FreeStyle 2021-0 No QD FreeStyle Lite Test - Lite Test - 3-30 Lite Test 00:00: - 00 FreeStyle FreeStyle 2021-0 No QD FreeStyle Lite Test - Lite Test - 3-30 Lite Test 00:00: - 00 FreeStyle FreeStyle 2021-0 No QD FreeStyle Lite Test - Lite Test - 3-30 Lite Test 00:00: - 00 FreeStyle FreeStyle 2021-0 No QD FreeStyle Lite Test - Lite Test - 3-30 Lite Test 00:00: - 00 FreeStyle FreeStyle 2021-0 No QD FreeStyle Lite Test - Lite Test - 3-30 Lite Test 00:00: - 00 FreeStyle FreeStyle 2021-0 No QD FreeStyle Lite Test - Lite Test - 3-30 Lite Test 00:00: - 00 FreeStyle FreeStyle 2021-0 No QD FreeStyle Lite Test - Lite Test - 3-30 Lite Test 00:00: - 00 FreeStyle FreeStyle 2021-0 No QD FreeStyle Lite Test - Lite Test - 3-30 Lite Test 00:00: - 00 FreeStyle FreeStyle 2021-0 No QD FreeStyle Lite Test - Lite Test - 3-30 Lite Test 00:00: - 00 FreeStyle FreeStyle 2021-0 No QD FreeStyle Lite Test - Lite Test - 3-30 Lite Test 00:00: - 00 FreeStyle FreeStyle 2021-0 No QD FreeStyle Lite Test - Lite Test - 3-30 Lite Test 00:00: - 00 FreeStyle FreeStyle 2021-0 No QD FreeStyle Lite Test - Lite Test - 3-30 Lite Test 00:00: - 00 FreeStyle FreeStyle 2021-0 No QD FreeStyle Lite Test - Lite Test - 3-30 Lite Test 00:00: - 00 Kenalog Kenalog 2020-0 No 40mg Common (Triamcinol (Triamcinol 9-09 S pirit one) one) 00:00: - CHI 00 [facility] Kenalog Kenalog 2020-0 No 40mg Common (Triamcinol (Triamcinol 9-09 S pirit one) one) 00:00: - CHI 00 [facility] Kenalog Kenalog 2020-0 No 40mg Common (Triamcinol (Triamcinol 9-09 S pirit one) one) 00:00: - CHI 00 [facility] Kenalog Kenalog 2020-0 No 40mg Common (Triamcinol (Triamcinol 9-09 S pirit one) one) 00:00: - CHI 00 [facility] Kenalog Kenalog 2020-0 No 40mg Common (Triamcinol (Triamcinol 9-09 S pirit one) one) 00:00: - CHI 00 [facility] Kenalog Kenalog 2020-0 No 40mg Common (Triamcinol (Triamcinol 9-09 S pirit one) one) 00:00: - CHI 00 [facility] Kenalog Kenalog 2020-0 No 40mg Common (Triamcinol (Triamcinol 9-09 S pirit one) one) 00:00: - CHI 00 [facility] Kenalog Kenalog 2020-0 No 40mg Common (Triamcinol (Triamcinol 9-09 S pirit one) one) 00:00: - CHI 00 [facility] Kenalog Kenalog 2020-0 No 40mg Common (Triamcinol (Triamcinol 9-09 S pirit one) one) 00:00: - CHI 00 [facility] Kenalog Kenalog 2020-0 No 40mg Common (Triamcinol (Triamcinol 9-09 S pirit one) one) 00:00: - CHI 00 [facility] Kenalog Kenalog 2020-0 No 40mg Common (Triamcinol (Triamcinol 9-09 S pirit one) one) 00:00: - CHI 00 [facility] Kenalog Kenalog 2020-0 No 40mg Common (Triamcinol (Triamcinol 9-09 S pirit one) one) 00:00: - CHI 00 [facility] Kenalog Kenalog 2020-0 No 40mg Common (Triamcinol (Triamcinol 9-09 S pirit one) one) 00:00: - CHI 00 [facility] Kenalog Kenalog 2020-0 No 40mg Common (Triamcinol (Triamcinol 9-09 S pirit one) one) 00:00: - CHI 00 [facility] Kenalog Kenalog 2020-0 No 40mg Common (Triamcinol (Triamcinol 9-09 S pirit one) one) 00:00: - CHI 00 [facility] Cyclobenzap Cyclobenzap 2019-0 2020- No Na Thompson 1 tablet Common rine HCl rine HCl 8-20 09-19 as needed S pirit 00:00: 00:00 - CHI 00 :00 [facility] [place] 3 2019-0 2020- No Na Thompson 1 capsule Common 5-18 11-13 Spirit 00:00: 00:00 - CHI 00 :00 [facility] cyclobenzap 2019-0 Yes [id number] 5mg Take 1 Univers rine 5 mg 3-16 tablet by ity o f tablet 00:00: mouth 3 00 (three) Medical times Branch daily as needed for Muscle Spasms. cyclobenzap 2020-0 Yes [id number] 5mg Take 1 Univers rine 5 mg 3-16 tablet by ity o f tablet 00:00: mouth 3 00 (three) Medical times Branch daily as needed for Muscle Spasms. cyclobenzap 2020-0 Yes [id number] 5mg Take 1 Univers rine 5 mg 3-16 tablet by ity o f tablet 00:00: mouth 3 00 (three) Medical times Branch daily as needed for Muscle Spasms. cyclobenzap 2020-0 Yes [id number] 5mg Take 1 Univers rine 5 mg 3-16 tablet by ity o f tablet 00:00: mouth 3 00 (three) Medical times Branch daily as needed for Muscle Spasms. cyclobenzap 2020-0 Yes [id number] 5mg Take 1 Univers rine 5 mg 3-16 tablet by ity o f tablet 00:00: mouth 3 (three) Medical times Branch daily as needed for Muscle Spasms. Gabapentin Gabapentin 2020-0 Yes Na Thompson as Common 2-06 directed Spirit 00:00: - CHI 00 [facility] Tresiba Tresiba 2019- Yes Na Thompson 10 units Common FlexTouch FlexTouch 1-08 and inc 2 Spirit 00:00: units - CHI [address] max f [facility] 30 units a Medical day Center Tresiba Tresiba 2019- No QD [place] FlexTouch FlexTouch 1-08 FlexTouch 200 UNIT/ML 200 UNIT/ML 00:00: 200 00 UNIT/ML [place] Tresiba 2019- No QD [place] FlexTouch FlexTouch 1-08 FlexTouch 200 UNIT/ML 200 UNIT/ML 00:00: 200 00 UNIT/ML [place] Tresiba 2019- No QD [place] FlexTouch FlexTouch 1-08 FlexTouch 200 UNIT/ML 200 UNIT/ML 00:00: 200 00 UNIT/ML [place] Tresiba 2019-1 No QD [place] FlexTouch FlexTouch 1-08 FlexTouch 200 UNIT/ML 200 UNIT/ML 00:00: 200 00 UNIT/ML [place] Tresiba 2019- No QD [place] FlexTouch FlexTouch 1-08 FlexTouch 200 UNIT/ML 200 UNIT/ML 00:00: 200 00 UNIT/ML [place] Tresiba 2019- No QD [place] FlexTouch FlexTouch 1-08 FlexTouch 200 UNIT/ML 200 UNIT/ML 00:00: 200 00 UNIT/ML [place] Tresiba 2018- No QD [place] FlexTouch FlexTouch 1-08 FlexTouch 200 UNIT/ML 200 UNIT/ML 00:00: 200 00 UNIT/ML [place] Tres[place] 2018- No QD [place] FlexTouch FlexTouch 1-08 FlexTouch 200 UNIT/ML 200 UNIT/ML 00:00: 200 00 UNIT/ML [place] Tres[place] 2018- No QD [place] FlexTouch FlexTouch 1-08 FlexTouch 200 UNIT/ML 200 UNIT/ML 00:00: 200 00 UNIT/ML [place] T[place] 2018- No QD [place] FlexTouch FlexTouch 1-08 FlexTouch 200 UNIT/ML 200 UNIT/ML 00:00: 200 00 UNIT/ML [place] T[place] 2018- No QD [place] FlexTouch FlexTouch 1-08 FlexTouch 200 UNIT/ML 200 UNIT/ML 00:00: 200 00 UNIT/ML [place] T[place] 2018- No QD [place] FlexTouch FlexTouch 1-08 FlexTouch 200 UNIT/ML 200 UNIT/ML 00:00: 200 00 UNIT/ML [place] T[place] 2018- No QD [place] FlexTouch FlexTouch 1-08 FlexTouch 200 UNIT/ML 200 UNIT/ML 00:00: 200 00 UNIT/ML [place] T[place] 2019- No QD [place] FlexTouch FlexTouch 1-08 FlexTouch 200 UNIT/ML 200 UNIT/ML 00:00: 200 00 UNIT/ML [place] T[place] 2018- No QD [place] FlexTouch FlexTouch 1-08 FlexTouch 200 UNIT/ML 200 UNIT/ML 00:00: 200 00 UNIT/ML [place] T[place] 2018- No QD [place] FlexTouch FlexTouch 1-08 FlexTouch 200 UNIT/ML 200 UNIT/ML 00:00: 200 00 UNIT/ML [place] T[place] 2018-1 No QD [place] FlexTouch FlexTouch 1-08 FlexTouch 200 UNIT/ML 200 UNIT/ML 00:00: 200 00 UNIT/ML [place] Tresiba 2018-1 No QD [employer] FlexTouch FlexTouch 1-08 FlexTouch 200 UNIT/ML 200 UNIT/ML 00:00: 200 00 UNIT/ML Farxiga Farxiga 2019-0 2020- No Na Thompson 1 Com mon 06-05 05-06 Spirit 00:00: 00:00 - [facility] 00 :00 [facility] Flonase Flonase 2017-0 Yes Na Thompson 2 spray in Common 9-14 each Spirit 00:00: nostril - [facility]I 00 [facility] Meclizine Meclizine 0 Yes Na Thompson 1 tablet Common HCl HCl 9-14 as needed Spirit 00:00: - [facility]I 00 [facility] Cetirizine Cetirizine 0 Yes Na Thompson 1 tablet Common HCl HCl 9-14 Spirit 00:00: - [facility]I 00 [facility] losartan 2014-11 Yes 50mg Take 1 Tab Uni vers (COZAAR) 50 2-22 by mouth ity of mg tablet 00:00: daily. [place] [facility] losartan 2014-11 Yes 50mg Take 1 Tab Uni vers (COZAAR) 50 2-22 by mouth ity of mg tablet 00:00: daily. [place] [facility] losartan 2014-11 Yes 50mg Take 1 Tab Uni vers (COZAAR) 50 2-22 by mouth ity of mg tablet 00:00: daily. [place] [facility] losartan 2014-11 Yes 50mg Take 1 Tab Uni vers (COZAAR) 50 2-22 by mouth ity of mg tablet 00:00: daily. [place] [facility] losartan 2014-11 Yes 50mg Take 1 Tab Uni vers (COZAAR) 50 2-22 by mouth ity of mg tablet 00:00: daily. [place] [facility] Blood 2014-11 Yes [id number] Use as Univer s Pressure 2-14 directed ity of Monitor 00:00: [place] (BLOOD Medical PRESSURE Branch KIT) Kit sitaGLIPtin 2014-11 Yes [id number] 100mg Take 1 Tab Univers (JANUVIA) 2-14 by mouth ity of 100 mg 00:00: daily. [place] tablet 00 Medical Branch Insulin 2014-11 Yes [id number] 15U inject 15 Univers Glargine 2-14 Units ity of (LANTUS 00:00: [facility] the [place] [facility] skin every Medi estrada 100 unit/mL morning. Bran ch (3 mL) injection Insulin 2014-11 Yes [id number] Use as Uni vers Union, 2-14 directed ity of Disposable, 00:00: [place] (BD INSULIN 00 Medical PEN NEEDLE Branch UF) 31 X 5/16 " Ndle metFORMIN 2014-11 Yes [id number] 1000mg Take 1 Tab Univers (GLUCOPHAGE 2-14 by mouth 2 it y of ) 1,000 mg 00:00: (two) [place] tablet 00 times Medical daily with Branch meals. blood sugar 2014-11 Yes Use as Univ ers diagnostic 2-14 directed, ity of (ACCU-CHEK 00:00: TID, DX: [place] as SMARTVIEW 00 E11.65 Medical TEST STRIP) Branch strip Lancets 2014-11 Yes Use as Univers (ACCU-CHEK 2-14 directed, ity of FASTCLIX) 00:00: [place] Misc 00 E11.65 [facility] Branch Blood 2014-11 Yes [id number] Use as Univer s Pressure 2-14 directed ity of Monitor 00:00: [place] (BLOOD 00 [facility] PRESSURE Branch KIT) Kit sitaGLIPtin 2014-11 Yes [id number] 100mg Take 1 Tab Univers (JANUVIA) 2-14 by mouth ity of 100 mg 00:00: daily. [place] tablet 00 [facility] Branch Insulin 2014-11 Yes [id number] 15U inject 15 Univers Glargine 2-14 Units ity of (LANTUS 00:00: under the [place] SOLOSTAR) 00 skin every Medi estrada 100 unit/mL morning. Bran ch (3 mL) injection Insulin 2014-11 Yes [id number] Use as Uni vers Union, 2-14 directed ity of Disposable, 00:00: [place] (BD INSULIN 00 Medical PEN NEEDLE Branch UF) 31 X 5/16 " Ndle metFORMIN 2014-11 Yes [id number] 1000mg Take 1 Tab Univers (GLUCOPHAGE 2-14 by mouth 2 it y of ) 1,000 mg 00:00: (two) [place] tablet 00 times Medical daily with Branch meals. blood sugar 2014-11 Yes Use as Univ ers diagnostic 2-14 directed, ity of (ACCU-CHEK 00:00: TID, DX: [place] as SMARTVIEW 00 E11.65 Medical TEST STRIP) Branch strip Lancets 2014-11 Yes Use as Univers (ACCU-CHEK 2-14 directed, ity of FASTCLIX) 00:00: [place], DX: [place] Misc 00 E11.65 Medical Branch Blood 2014-11 Yes [id number] Use as Univer s Pressure 2-14 directed ity of Monitor 00:00: [place] (BLOOD 00 Medical PRESSURE Branch KIT) Kit sitaGLIPtin 2014-11 Yes [id number] 100mg Take 1 Tab Univers (JANUVIA) 2-14 by mouth ity of 100 mg 00:00: daily. [place] tablet 00 Medical Branch Insulin 2014-11 Yes [id number] 15U inject 15 Univers Glargine 2-14 Units ity of (LANTUS 00:00: under the [place] SOLOSTAR) 00 skin every Medi estrada 100 unit/mL morning. Bran ch (3 mL) injection Insulin 2014-11 Yes [id number] Use as Uni vers Union, 2-14 directed ity of Disposable, 00:00: [place] (BD INSULIN 00 Medical PEN NEEDLE Branch UF) 31 X 5/16 " Ndle metFORMIN 2014-11 Yes [id number] 1000mg Take 1 Tab Univers (GLUCOPHAGE 2-14 by mouth 2 it y of ) 1,000 mg 00:00: (two) [place] tablet 00 times Medical daily with Branch meals. blood sugar 2014-11 Yes Use as Univ ers diagnostic 2-14 directed, ity of (ACCU-CHEK 00:00: TID, DX: [place] as SMARTVIEW 00 E11.65 Medical TEST STRIP) Branch strip Lancets 2014-11 Yes Use as Univers (ACCU-CHEK 2-14 directed, ity of FASTCLIX) 00:00: [place], DX: [place] Misc 00 E11.65 Medical Branch Blood 2014-11 Yes [id number] Use as Univer s Pressure 2-14 directed ity of Monitor 00:00: [place] (BLOOD 00 Medical PRESSURE Branch KIT) Kit sitaGLIPtin 2014-11 Yes [id number] 100mg Take 1 Tab Univers (JANUVIA) 2-14 by mouth ity of 100 mg 00:00: daily. [place] tablet 00 Medical Branch Insulin 2014-11 Yes [id number] 15U inject 15 Univers Glargine 2-14 Units ity of (LANTUS 00:00: under the [place] SOLOSTAR) 00 skin every Medi estrada 100 unit/mL morning. Bran ch (3 mL) injection Insulin 2014-11 Yes [id number] Use as Uni vers Union, 2-14 directed ity of Disposable, 00:00: [place] (BD INSULIN 00 Medical PEN NEEDLE Branch UF) 31 X 5/16 " Ndle metFORMIN 2014-11 Yes [id number] 1000mg Take 1 Tab Univers (GLUCOPHAGE 2-14 by mouth 2 it y of ) 1,000 mg 00:00: (two) [place] tablet 00 times Medical daily with Branch meals. blood sugar 2014-11 Yes Use as Univ ers diagnostic 2-14 directed, ity of (ACCU-CHEK 00:00: TID, DX: [place] as SMARTVIEW 00 E11.65 Medical TEST STRIP) Branch strip Lancets 2014-11 Yes Use as Univers (ACCU-CHEK 2-14 directed, ity of FASTCLIX) 00:00: [place], DX: [place] Misc 00 E11.65 [facility] Branch Blood 2014-11 Yes [id number] Use as Univer s Pressure 2-14 directed ity of Monitor 00:00: [place] (BLOOD 00 [facility] PRESSURE Branch KIT) Kit sitaGLIPtin 2014-11 Yes [id number] 100mg Take 1 Tab Univers (JANUVIA) 2-14 by mouth ity of 100 mg 00:00: daily. [place] tablet 00 Medical Branch Insulin 2014-11 Yes [id number] 15U inject 15 Univers Glargine 2-14 Units ity of (LANTUS 00:00: under the [place] SOLOSTAR) 00 skin every Medi estrada 100 unit/mL morning. Bran ch (3 mL) injection Insulin 2014-11 Yes [id number] Use as Uni vers Union, 2-14 directed ity of Disposable, 00:00: [place] (BD INSULIN 00 Medical PEN NEEDLE Branch UF) 31 X 5/16 " Ndle metFORMIN 2014-11 Yes [id number] 1000mg Take 1 Tab Univers (GLUCOPHAGE 2-14 by mouth 2 it y of ) 1,000 mg 00:00: (two) [place] tablet 00 times Medical daily with Branch meals. blood sugar 2014-11 Yes Use as Univ ers diagnostic 2-14 directed, ity of (ACCU-CHEK 00:00: TID, DX: [place] as SMARTVIEW E11.65 Medical TEST STRIP) Branch strip Lancets 2014-11 Yes Use as Univers (ACCU-CHEK 2-14 directed, ity of FASTCLIX) 00:00: [place], DX: [place] Misc E11.65 Medical Branch gabapentin 2014-11 Yes Univers (NEURONTIN) 1-24 ity of 100 mg 00:00: [place] capsule Medical Branch gabapentin 2014-11 Yes Univers (NEURONTIN) 1-24 ity of 100 mg 00:00: [place] capsule Medical Branch gabapentin 2014-11 Yes Univers (NEURONTIN) 1-24 ity of 100 mg 00:00: [place] capsule Medical Branch gabapentin 2014-11 Yes Univers (NEURONTIN) 1-24 ity of 100 mg 00:00: [place] capsule [facility] Branch gabapentin 2014-11 Yes Univers (NEURONTIN) 1-24 ity of 100 mg 00:00: [place] capsule Medical Branch Metformin Metformin Yes Na Thompson 1 tablet Common HCl HCl with a Spirit meal - [facility]I [facility] Glimepiride Glimepiride Yes Na Thompson TAKE ONE Common TABLET BY Spirit MOUTH ONCE - CHI DAILY IN [facility] Losartan Losartan Yes Na Thompson TAKE ONE Common Potassium Potassium TABLET BY Spirit MOUTH ONCE - CHI DAILY [facility] Diclofenac Diclofenac Yes Na Thompson as Common Sodium Sodium directed [facility] Lantus Lantus Yes Na Thompson 50 units Comm on [facility] SoloStri titrate up S pirit 2 units - CHI every [address] [facility] glucose Center less 100 ax of 80 units daily Glimepiride Glimepiride Yes Na Thompson 1 tablet Common with Spirit breakfast - [facility] or [facility] meal of Medical the day Center Gabapentin Gabapentin Yes Na Thompson 1 capsule Common Spirit [facility] Lipitor Lipitor Yes Na Thompson 1 tablet Co mmon [facility] Cozaar Cozaar Yes Na Thompson 1 tablet Comm on Spirit - [facility]I [facility] Cyclobenzap Cyclobenzap No 1{table Cyclobenza rine HCl 10 rine HCl 10 t_as_ne alicia HCl MG MG eded} 10 MG Januvia 100 Januvia 100 No 1{table QD Januvia MG MG t} 100 MG Gabapentin Gabapentin No Gabapentin 300 MG 300 MG 300 MG Cozaar 100 Cozaar 100 No 1{table QD Cozaar 100 MG MG t} MG metFORMIN metFORMIN No metFORMIN HCl 1000 MG HCl 1000 MG HCl 1000 MG Losartan Losartan No 1{table QD Losartan Potassium Potassium t} Potassium 100 MG 100 MG 100 MG Glimepiride Glimepiride No 1{table Glimepirid 2 MG 2 MG t} e 2 MG Atorvastati Atorvastati No 1{table QD Atorvastat n Calcium n Calcium t} in Calcium 20 MG 20 MG 20 MG [place] [address] [place] [facility] No 1{capsu QD [place] 3 1000 MG 1000 MG le} 1000 MG Lipitor 10 Lipitor 10 No 1{table QD Lipitor 10 MG MG t} MG amLODIPine amLODIPine No 1{table amLODIPine Besylate 5 Besylate 5 t} Besylate 5 MG MG MG CeleBREX CeleBREX No 1{capsu BID CeleBREX 100 MG 100 MG le_with 100 MG _food} Carvedilol Carvedilol No 1{table BID Carvedilol 12.5 MG 12.5 MG t_with_ 12.5 MG food} NovoLIN NovoLIN No NovoLIN 70/30 70/30 70/30 (70-30) 100 (70-30) 100 (70-30) UNIT/ML UNIT/ML 100 UNIT/ML Pregabalin Pregabalin No 1{capsu BID Pregabalin 50 MG 50 MG le} 50 MG Diclofenac Diclofenac No Diclofenac Sodium 1 % Sodium 1 % Sodium 1 % Trulicity Trulicity No Trulicity 0.75 0.75 0.75 MG/0.5ML MG/0.5ML MG/0.5ML Gabapentin Gabapentin No Gabapentin 300 MG 300 MG 300 MG Lipitor 10 Lipitor 10 No 1{table QD Lipitor 10 MG MG t} MG Atorvastati Atorvastati No 1{table QD Atorvastat n Calcium n Calcium t} in Calcium 20 MG 20 MG 20 MG Carvedilol Carvedilol No 1{table BID Carvedilol 12.5 MG 12.5 MG t_with_ 12.5 MG food} Pregabalin Pregabalin No 1{capsu BID Pregabalin 50 MG 50 MG le} 50 MG Cozaar 100 Cozaar 100 No 1{table QD Cozaar 100 MG MG t} MG Lantus Lantus No QD Lantus SoloStar SoloStar SoloStar 100 UNIT/ML 100 UNIT/ML 100 UNIT/ML [place] [address] [place] 3 No 1{capsu QD [place] 3 1000 MG 1000 MG le} 1000 MG metFORMIN metFORMIN No metFORMIN HCl 1000 MG HCl 1000 MG HCl 1000 MG Januvia 100 Januvia 100 No 1{table QD Januvia MG MG t} 100 MG Diclofenac Diclofenac No Diclofenac Sodium 1 % Sodium 1 % Sodium 1 % Cyclobenzap Cyclobenzap No 1{table Cyclobenza rine HCl 10 rine HCl 10 t_as_ne alicia HCl MG MG eded} 10 MG amLODIPine amLODIPine No 1{table amLODIPine Besylate 5 Besylate 5 t} Besylate 5 MG MG MG CeleBREX CeleBREX No 1{capsu BID CeleBREX 100 MG 100 MG le_with 100 MG _food} Januvia 100 Januvia 100 No 1{table QD Januvia MG MG t} 100 MG Gabapentin Gabapentin No Gabapentin 300 MG 300 MG 300 MG Diclofenac Diclofenac No Diclofenac Sodium 1 % Sodium 1 % Sodium 1 % Lantus Lantus No QD Lantus SoloStar SoloStar SoloStar 100 UNIT/ML 100 UNIT/ML 100 UNIT/ML Atorvastati Atorvastati No 1{table QD Atorvastat n Calcium n Calcium t} in Calcium 20 MG 20 MG 20 MG [place] [address] [place] 3 No 1{capsu QD [place] 3 1000 MG 1000 MG le} 1000 MG Carvedilol Carvedilol No 1{table BID Carvedilol 12.5 MG 12.5 MG t_with_ 12.5 MG food} Lipitor 10 Lipitor 10 No 1{table QD Lipitor 10 MG MG t} MG Pregabalin Pregabalin No 1{capsu BID Pregabalin 50 MG 50 MG le} 50 MG Cozaar 100 Cozaar 100 No 1{table QD Cozaar 100 MG MG t} MG metFORMIN metFORMIN No metFORMIN HCl 1000 MG HCl 1000 MG HCl 1000 MG CeleBREX CeleBREX No 1{capsu BID CeleBREX 100 MG 100 MG le_with 100 MG _food} Cyclobenzap Cyclobenzap No 1{table Cyclobenza rine HCl 10 rine HCl 10 t_as_ne alicia HCl MG MG eded} 10 MG amLODIPine amLODIPine No 1{table amLODIPine Besylate 5 Besylate 5 t} Besylate 5 MG MG MG Losartan Losartan No Losartan Potassium Potassium Potassium CeleBREX CeleBREX No 1{capsu BID CeleBREX 100 MG 100 MG le_with 100 MG _food} Atorvastati Atorvastati No 1{table QD Atorvastat n Calcium n Calcium t} in Calcium 20 MG 20 MG 20 MG Lantus Lantus No QD Lantus SoloStar SoloStar SoloStar 100 UNIT/ML 100 UNIT/ML 100 UNIT/ML [place] [address] [place] 3 No 1{capsu QD [place] 3 1000 MG 1000 MG le} 1000 MG Cozaar 100 Cozaar 100 No 1{table QD Cozaar 100 MG MG t} MG Cyclobenzap Cyclobenzap No 1{table Cyclobenza rine HCl 10 rine HCl 10 t_as_ne alicia HCl MG MG eded} 10 MG Gabapentin Gabapentin No Gabapentin 300 MG 300 MG 300 MG Januvia 100 Januvia 100 No 1{table QD Januvia MG MG t} 100 MG Diclofenac Diclofenac No Diclofenac Sodium 1 % Sodium 1 % Sodium 1 % Losartan Losartan No Losartan Potassium Potassium Potassium Carvedilol Carvedilol No 1{table BID Carvedilol 12.5 MG 12.5 MG t_with_ 12.5 MG food} Lipitor 10 Lipitor 10 No 1{table QD Lipitor 10 MG MG t} MG Pregabalin Pregabalin No 1{capsu BID Pregabalin 50 MG 50 MG le} 50 MG amLODIPine amLODIPine No 1{table amLODIPine Besylate 5 Besylate 5 t} Besylate 5 MG MG MG metFORMIN metFORMIN No metFORMIN HCl 1000 MG HCl 1000 MG HCl 1000 MG [place] [address] [place] 3 No 1{capsu QD [place] 3 1000 MG 1000 MG le} 1000 MG Losartan Losartan No 1{table QD Losartan Potassium Potassium t} Potassium 100 MG 100 MG 100 MG Januvia 100 Januvia 100 No 1{table QD Januvia MG MG t} 100 MG metFORMIN metFORMIN No metFORMIN HCl 1000 MG HCl 1000 MG HCl 1000 MG Lantus Lantus No QD Lantus SoloStar SoloStar SoloStar 100 UNIT/ML 100 UNIT/ML 100 UNIT/ML Cyclobenzap Cyclobenzap No 1{table Cyclobenza rine HCl 10 rine HCl 10 t_as_ne alicia HCl MG MG eded} 10 MG Diclofenac Diclofenac No Diclofenac Sodium 1 % Sodium 1 % Sodium 1 % Lipitor 10 Lipitor 10 No 1{table QD Lipitor 10 MG MG t} MG Carvedilol Carvedilol No 1{table BID Carvedilol 12.5 MG 12.5 MG t_with_ 12.5 MG food} Atorvastati Atorvastati No 1{table QD Atorvastat n Calcium n Calcium t} in Calcium 20 MG 20 MG 20 MG Cozaar 100 Cozaar 100 No 1{table QD Cozaar 100 MG MG t} MG Pregabalin Pregabalin No 1{capsu BID Pregabalin 50 MG 50 MG le} 50 MG Gabapentin Gabapentin No Gabapentin 300 MG 300 MG 300 MG amLODIPine amLODIPine No 1{table amLODIPine Besylate 5 Besylate 5 t} Besylate 5 MG MG MG CeleBREX CeleBREX No 1{capsu BID CeleBREX 100 MG 100 MG le_with 100 MG _food} Gabapentin Gabapentin No Gabapentin 300 MG 300 MG 300 MG Cyclobenzap Cyclobenzap No 1{table Cyclobenza rine HCl 10 rine HCl 10 t_as_ne alicia HCl MG MG eded} 10 MG Cozaar 100 Cozaar 100 No 1{table QD Cozaar 100 MG MG t} MG [place] [address] [place] 3 No 1{capsu QD [place] 3 1000 MG 1000 MG le} 1000 MG metFORMIN metFORMIN No metFORMIN HCl 1000 MG HCl 1000 MG HCl 1000 MG Carvedilol Carvedilol No 1{table BID Carvedilol 12.5 MG 12.5 MG t_with_ 12.5 MG food} Atorvastati Atorvastati No 1{table QD Atorvastat n Calcium n Calcium t} in Calcium 20 MG 20 MG 20 MG Losartan Losartan No Losartan Potassium Potassium Potassium 100 MG 100 MG 100 MG Diclofenac Diclofenac No Diclofenac Sodium 1 % Sodium 1 % Sodium 1 % amLODIPine amLODIPine No 1{table amLODIPine Besylate 5 Besylate 5 t} Besylate 5 MG MG MG Pregabalin Pregabalin No 1{capsu BID Pregabalin 50 MG 50 MG le} 50 MG Lipitor 10 Lipitor 10 No 1{table QD Lipitor 10 MG MG t} MG Januvia 100 Januvia 100 No 1{table QD Januvia MG MG t} 100 MG CeleBREX CeleBREX No 1{capsu BID CeleBREX 100 MG 100 MG le_with 100 MG _food} Losartan Losartan No 1{table QD Losartan Potassium Potassium t} Potassium 100 MG 100 MG 100 MG metFORMIN metFORMIN No metFORMIN HCl 1000 MG HCl 1000 MG HCl 1000 MG Cyclobenzap Cyclobenzap No 1{table Cyclobenza rine HCl 10 rine HCl 10 t_as_ne alicia HCl MG MG eded} 10 MG Glimepiride Glimepiride No 1{table Glimepirid 2 MG 2 MG t} e 2 MG Lipitor 10 Lipitor 10 No 1{table QD Lipitor 10 MG MG t} MG Losartan Losartan No Losartan Potassium Potassium Potassium 100 MG 100 MG 100 MG amLODIPine amLODIPine No 1{table amLODIPine Besylate 5 Besylate 5 t} Besylate 5 MG MG MG Losartan Losartan No 1{table QD Losartan Potassium Potassium t} Potassium 100 MG 100 MG 100 MG Cozaar 100 Cozaar 100 No 1{table QD Cozaar 100 MG MG t} MG Januvia 100 Januvia 100 No 1{table QD Januvia MG MG t} 100 MG Pregabalin Pregabalin No 1{capsu BID Pregabalin 50 MG 50 MG le} 50 MG Gabapentin Gabapentin No Gabapentin 300 MG 300 MG 300 MG [place] [address] [place] 3 No 1{capsu QD [place] 3 1000 MG 1000 MG le} 1000 MG Diclofenac Diclofenac No Diclofenac Sodium 1 % Sodium 1 % Sodium 1 % CeleBREX CeleBREX No 1{capsu BID CeleBREX 100 MG 100 MG le_with 100 MG _food} Carvedilol Carvedilol No 1{table BID Carvedilol 12.5 MG 12.5 MG t_with_ 12.5 MG food} NovoLIN NovoLIN No NovoLIN 70/30 70/30 70/30 (70-30) 100 (70-30) 100 (70-30) UNIT/ML UNIT/ML 100 UNIT/ML Atorvastati Atorvastati No 1{table QD Atorvastat n Calcium n Calcium t} in Calcium 20 MG 20 MG 20 MG metFORMIN metFORMIN No metFORMIN HCl 1000 MG HCl 1000 MG HCl 1000 MG Cyclobenzap Cyclobenzap No 1{table Cyclobenza rine HCl 10 rine HCl 10 t_as_ne alicia HCl MG MG eded} 10 MG Glimepiride Glimepiride No 1{table Glimepirid 2 MG 2 MG t} e 2 MG Lipitor 10 Lipitor 10 No 1{table QD Lipitor 10 MG MG t} MG Losartan Losartan No Losartan Potassium Potassium Potassium 100 MG 100 MG 100 MG amLODIPine amLODIPine No 1{table amLODIPine Besylate 5 Besylate 5 t} Besylate 5 MG MG MG Losartan Losartan No 1{table QD Losartan Potassium Potassium t} Potassium 100 MG 100 MG 100 MG Cozaar 100 Cozaar 100 No 1{table QD Cozaar 100 MG MG t} MG Januvia 100 Januvia 100 No 1{table QD Januvia MG MG t} 100 MG Pregabalin Pregabalin No 1{capsu BID Pregabalin 50 MG 50 MG le} 50 MG Gabapentin Gabapentin No Gabapentin 300 MG 300 MG 300 MG [place] [address] [place] 3 No 1{capsu QD [place] 3 1000 MG 1000 MG le} 1000 MG Diclofenac Diclofenac No Diclofenac Sodium 1 % Sodium 1 % Sodium 1 % CeleBREX CeleBREX No 1{capsu BID CeleBREX 100 MG 100 MG le_with 100 MG _food} Carvedilol Carvedilol No 1{table BID Carvedilol 12.5 MG 12.5 MG t_with_ 12.5 MG food} NovoLIN NovoLIN No NovoLIN 70/30 70/30 70/30 (70-30) 100 (70-30) 100 (70-30) UNIT/ML UNIT/ML 100 UNIT/ML Atorvastati Atorvastati No 1{table QD Atorvastat n Calcium n Calcium t} in Calcium 20 MG 20 MG 20 MG Diclofenac Diclofenac No Diclofenac Sodium 1 % Sodium 1 % Sodium 1 % metFORMIN metFORMIN No metFORMIN HCl 1000 MG HCl 1000 MG HCl 1000 MG Glimepiride Glimepiride No 1{table Glimepirid 2 MG 2 MG t} e 2 MG CeleBREX CeleBREX No 1{capsu BID CeleBREX 100 MG 100 MG le_with 100 MG _food} NovoLIN NovoLIN No NovoLIN 70/30 70/30 70/30 (70-30) 100 (70-30) 100 (70-30) UNIT/ML UNIT/ML 100 UNIT/ML Carvedilol Carvedilol No 1{table BID Carvedilol 12.5 MG 12.5 MG t_with_ 12.5 MG food} [place] [address] [place] 3 No 1{capsu QD [place] 3 1000 MG 1000 MG le} 1000 MG Lipitor 10 Lipitor 10 No 1{table QD Lipitor 10 MG MG t} MG amLODIPine amLODIPine No 1{table BID amLODIPine Besylate 5 Besylate 5 t} Besylate 5 MG MG MG Atorvastati Atorvastati No 1{table QD Atorvastat n Calcium n Calcium t} in Calcium 20 MG 20 MG 20 MG Losartan Losartan No 1{table QD Losartan Potassium Potassium t} Potassium 100 MG 100 MG 100 MG Losartan Losartan No 1{table QD Losartan Potassium Potassium t} Potassium 100 MG 100 MG 100 MG Januvia 100 Januvia 100 No 1{table QD Januvia MG MG t} 100 MG Gabapentin Gabapentin No Gabapentin 300 MG 300 MG 300 MG Cozaar 100 Cozaar 100 No 1{table QD Cozaar 100 MG MG t} MG Cyclobenzap Cyclobenzap No 1{table Cyclobenza rine HCl 10 rine HCl 10 t_as_ne alicia HCl MG MG eded} 10 MG Pregabalin Pregabalin No 1{capsu BID Pregabalin 50 MG 50 MG le} 50 MG Diclofenac Diclofenac No Diclofenac Sodium 1 % Sodium 1 % Sodium 1 % metFORMIN metFORMIN No metFORMIN HCl 1000 MG HCl 1000 MG HCl 1000 MG Glimepiride Glimepiride No 1{table Glimepirid 2 MG 2 MG t} e 2 MG CeleBREX CeleBREX No 1{capsu BID CeleBREX 100 MG 100 MG le_with 100 MG _food} NovoLIN NovoLIN No NovoLIN 70/30 70/30 70/30 (70-30) 100 (70-30) 100 (70-30) UNIT/ML UNIT/ML 100 UNIT/ML Carvedilol Carvedilol No 1{table BID Carvedilol 12.5 MG 12.5 MG t_with_ 12.5 MG food} [place] [address] [place] 3 No 1{capsu QD [place] 3 1000 MG 1000 MG le} 1000 MG Lipitor 10 Lipitor 10 No 1{table QD Lipitor 10 MG MG t} MG amLODIPine amLODIPine No 1{table BID amLODIPine Besylate 5 Besylate 5 t} Besylate 5 MG MG MG Atorvastati Atorvastati No 1{table QD Atorvastat n Calcium n Calcium t} in Calcium 20 MG 20 MG 20 MG Losartan Losartan No 1{table QD Losartan Potassium Potassium t} Potassium 100 MG 100 MG 100 MG Losartan Losartan No 1{table QD Losartan Potassium Potassium t} Potassium 100 MG 100 MG 100 MG Januvia 100 Januvia 100 No 1{table QD Januvia MG MG t} 100 MG Gabapentin Gabapentin No Gabapentin 300 MG 300 MG 300 MG Cozaar 100 Cozaar 100 No 1{table QD Cozaar 100 MG MG t} MG Cyclobenzap Cyclobenzap No 1{table Cyclobenza rine HCl 10 rine HCl 10 t_as_ne alicia HCl MG MG eded} 10 MG Pregabalin Pregabalin No 1{capsu BID Pregabalin 50 MG 50 MG le} 50 MG Diclofenac Diclofenac No Diclofenac Sodium 1 % Sodium 1 % Sodium 1 % metFORMIN metFORMIN No metFORMIN HCl 1000 MG HCl 1000 MG HCl 1000 MG Glimepiride Glimepiride No 1{table Glimepirid 2 MG 2 MG t} e 2 MG CeleBREX CeleBREX No 1{capsu BID CeleBREX 100 MG 100 MG le_with 100 MG _food} NovoLIN NovoLIN No NovoLIN 70/30 70/30 70/30 (70-30) 100 (70-30) 100 (70-30) UNIT/ML UNIT/ML 100 UNIT/ML Carvedilol Carvedilol No 1{table BID Carvedilol 12.5 MG 12.5 MG t_with_ 12.5 MG food} [place] [address] [place] 3 No 1{capsu QD [place] 3 1000 MG 1000 MG le} 1000 MG Lipitor 10 Lipitor 10 No 1{table QD Lipitor 10 MG MG t} MG amLODIPine amLODIPine No 1{table BID amLODIPine Besylate 5 Besylate 5 t} Besylate 5 MG MG MG Atorvastati Atorvastati No 1{table QD Atorvastat n Calcium n Calcium t} in Calcium 20 MG 20 MG 20 MG Losartan Losartan No 1{table QD Losartan Potassium Potassium t} Potassium 100 MG 100 MG 100 MG Losartan Losartan No 1{table QD Losartan Potassium Potassium t} Potassium 100 MG 100 MG 100 MG Januvia 100 Januvia 100 No 1{table QD Januvia MG MG t} 100 MG Gabapentin Gabapentin No Gabapentin 300 MG 300 MG 300 MG Cozaar 100 Cozaar 100 No 1{table QD Cozaar 100 MG MG t} MG Cyclobenzap Cyclobenzap No 1{table Cyclobenza rine HCl 10 rine HCl 10 t_as_ne alicia HCl MG MG eded} 10 MG Pregabalin Pregabalin No 1{capsu BID Pregabalin 50 MG 50 MG le} 50 MG Pregabalin Pregabalin No 1{capsu BID Pregabalin 50 MG 50 MG le} 50 MG Atorvastati Atorvastati No 1{table QD Atorvastat n Calcium n Calcium t} in Calcium 20 MG 20 MG 20 MG Losartan Losartan No 1{table QD Losartan Potassium Potassium t} Potassium 100 MG 100 MG 100 MG Diclofenac Diclofenac No Diclofenac Sodium 1 % Sodium 1 % Sodium 1 % Cyclobenzap Cyclobenzap No 1{table Cyclobenza rine HCl 10 rine HCl 10 t_as_ne alicia HCl MG MG eded} 10 MG metFORMIN metFORMIN No metFORMIN HCl 1000 MG HCl 1000 MG HCl 1000 MG Carvedilol Carvedilol No 1{table BID Carvedilol 12.5 MG 12.5 MG t_with_ 12.5 MG food} Lipitor 10 Lipitor 10 No 1{table QD Lipitor 10 MG MG t} MG CeleBREX CeleBREX No 1{capsu BID CeleBREX 100 MG 100 MG le_with 100 MG _food} Losartan Losartan No 1{table QD Losartan Potassium Potassium t} Potassium 100 MG 100 MG 100 MG [place] [address] [place] 3 No 1{capsu QD [place] 3 1000 MG 1000 MG le} 1000 MG amLODIPine amLODIPine No 1{table BID amLODIPine Besylate 5 Besylate 5 t} Besylate 5 MG MG MG NovoLIN NovoLIN No NovoLIN 70/30 70/30 70/30 (70-30) 100 (70-30) 100 (70-30) UNIT/ML UNIT/ML 100 UNIT/ML Glimepiride Glimepiride No 1{table Glimepirid 2 MG 2 MG t} e 2 MG Gabapentin Gabapentin No Gabapentin 300 MG 300 MG 300 MG Cozaar 100 Cozaar 100 No 1{table QD Cozaar 100 MG MG t} MG Januvia 100 Januvia 100 No 1{table QD Januvia MG MG t} 100 MG Cyclobenzap Cyclobenzap No 1{table Cyclobenza rine HCl 10 rine HCl 10 t_as_ne alicia HCl MG MG eded} 10 MG Januvia 100 Januvia 100 No 1{table QD Januvia MG MG t} 100 MG Gabapentin Gabapentin No Gabapentin 300 MG 300 MG 300 MG Cozaar 100 Cozaar 100 No 1{table QD Cozaar 100 MG MG t} MG metFORMIN metFORMIN No metFORMIN HCl 1000 MG HCl 1000 MG HCl 1000 MG Losartan Losartan No 1{table QD Losartan Potassium Potassium t} Potassium 100 MG 100 MG 100 MG Glimepiride Glimepiride No 1{table Glimepirid 2 MG 2 MG t} e 2 MG Atorvastati Atorvastati No 1{table QD Atorvastat n Calcium n Calcium t} in Calcium 20 MG 20 MG 20 MG [place] 3 [place] 3 No 1{capsu QD [place] 3 1000 MG 1000 MG le} 1000 MG Lipitor 10 Lipitor 10 No 1{table QD Lipitor 10 MG MG t} MG amLODIPine amLODIPine No 1{table amLODIPine Besylate 5 Besylate 5 t} Besylate 5 MG MG MG CeleBREX CeleBREX No 1{capsu BID CeleBREX 100 MG 100 MG le_with 100 MG _food} Carvedilol Carvedilol No 1{table BID Carvedilol 12.5 MG 12.5 MG t_with_ 12.5 MG food} NovoLIN NovoLIN No NovoLIN 70/30 70/30 70/30 (70-30) 100 (70-30) 100 (70-30) UNIT/ML UNIT/ML 100 UNIT/ML Pregabalin Pregabalin No 1{capsu BID Pregabalin 50 MG 50 MG le} 50 MG Diclofenac Diclofenac No Diclofenac Sodium 1 % Sodium 1 % Sodium 1 % Trulicity Trulicity No Trulicity 0.75 0.75 0.75 MG/0.5ML MG/0.5ML MG/0.5ML Cyclobenzap Cyclobenzap No 1{table Cyclobenza rine HCl 10 rine HCl 10 t_as_ne alicia HCl MG MG eded} 10 MG Januvia 100 Januvia 100 No 1{table QD Januvia MG MG t} 100 MG Gabapentin Gabapentin No Gabapentin 300 MG 300 MG 300 MG Cozaar 100 Cozaar 100 No 1{table QD Cozaar 100 MG MG t} MG metFORMIN metFORMIN No metFORMIN HCl 1000 MG HCl 1000 MG HCl 1000 MG Losartan Losartan No 1{table QD Losartan Potassium Potassium t} Potassium 100 MG 100 MG 100 MG Glimepiride Glimepiride No 1{table Glimepirid 2 MG 2 MG t} e 2 MG Atorvastati Atorvastati No 1{table QD Atorvastat n Calcium n Calcium t} in Calcium 20 MG 20 MG 20 MG [place] 3 No 1{capsu QD [place] 3 1000 MG 1000 MG le} 1000 MG Lipitor 10 Lipitor 10 No 1{table QD Lipitor 10 MG MG t} MG amLODIPine amLODIPine No 1{table amLODIPine Besylate 5 Besylate 5 t} Besylate 5 MG MG MG CeleBREX CeleBREX No 1{capsu BID CeleBREX 100 MG 100 MG le_with 100 MG _food} Carvedilol Carvedilol No 1{table BID Carvedilol 12.5 MG 12.5 MG t_with_ 12.5 MG food} NovoLIN NovoLIN No NovoLIN 70/30 70/30 70/30 (70-30) 100 (70-30) 100 (70-30) UNIT/ML UNIT/ML 100 UNIT/ML Pregabalin Pregabalin No 1{capsu BID Pregabalin 50 MG 50 MG le} 50 MG Diclofenac Diclofenac No Diclofenac Sodium 1 % Sodium 1 % Sodium 1 % Trulicity Trulicity No Trulicity 0.75 0.75 0.75 MG/0.5ML MG/0.5ML MG/0.5ML Cyclobenzap Cyclobenzap No 1{table Cyclobenza rine HCl 10 rine HCl 10 t_as_ne alicia HCl MG MG eded} 10 MG Januvia 100 Januvia 100 No 1{table QD Januvia MG MG t} 100 MG Gabapentin Gabapentin No Gabapentin 300 MG 300 MG 300 MG Cozaar 100 Cozaar 100 No 1{table QD Cozaar 100 MG MG t} MG metFORMIN metFORMIN No metFORMIN HCl 1000 MG HCl 1000 MG HCl 1000 MG Losartan Losartan No 1{table QD Losartan Potassium Potassium t} Potassium 100 MG 100 MG 100 MG Glimepiride Glimepiride No 1{table Glimepirid 2 MG 2 MG t} e 2 MG Atorvastati Atorvastati No 1{table QD Atorvastat n Calcium n Calcium t} in Calcium 20 MG 20 MG 20 MG [place] 3 [place] 3 No 1{capsu QD [place] 3 1000 MG 1000 MG le} 1000 MG Lipitor 10 Lipitor 10 No 1{table QD Lipitor 10 MG MG t} MG amLODIPine amLODIPine No 1{table amLODIPine Besylate 5 Besylate 5 t} Besylate 5 MG MG MG CeleBREX CeleBREX No 1{capsu BID CeleBREX 100 MG 100 MG le_with 100 MG _food} Carvedilol Carvedilol No 1{table BID Carvedilol 12.5 MG 12.5 MG t_with_ 12.5 MG food} NovoLIN NovoLIN No NovoLIN 70/30 70/30 70/30 (70-30) 100 (70-30) 100 (70-30) UNIT/ML UNIT/ML 100 UNIT/ML Pregabalin Pregabalin No 1{capsu BID Pregabalin 50 MG 50 MG le} 50 MG Diclofenac Diclofenac No Diclofenac Sodium 1 % Sodium 1 % Sodium 1 % Trulicity Trulicity No Trulicity 0.75 0.75 0.75 MG/0.5ML MG/0.5ML MG/0.5ML Januvia 100 Januvia 100 No 1{table QD Januvia MG MG t} 100 MG Cozaar 100 Cozaar 100 No 1{table QD Cozaar 100 MG MG t} MG Diclofenac Diclofenac No Diclofenac Sodium 1 % Sodium 1 % Sodium 1 % Lantus Lantus No QD Lantus SoloStar SoloStar SoloStar 100 UNIT/ML 100 UNIT/ML 100 UNIT/ML Carvedilol Carvedilol No 1{table BID Carvedilol 12.5 MG 12.5 MG t_with_ 12.5 MG food} Cyclobenzap Cyclobenzap No 1{table Cyclobenza rine HCl 10 rine HCl 10 t_as_ne alicia HCl MG MG eded} 10 MG Losartan Losartan No 1{table QD Losartan Potassium Potassium t} Potassium 100 MG 100 MG 100 MG Pregabalin Pregabalin No 1{capsu BID Pregabalin 50 MG 50 MG le} 50 MG amLODIPine amLODIPine No 1{table amLODIPine Besylate 5 Besylate 5 t} Besylate 5 MG MG MG Glimepiride Glimepiride No 1{table Glimepirid 2 MG 2 MG t} e 2 MG [place] 3 No 1{capsu QD [place] 3 1000 MG 1000 MG le} 1000 MG Lipitor 10 Lipitor 10 No 1{table QD Lipitor 10 MG MG t} MG Gabapentin Gabapentin No Gabapentin 300 MG 300 MG 300 MG Trulicity Trulicity No Trulicity 0.75 0.75 0.75 MG/0.5ML MG/0.5ML MG/0.5ML Atorvastati Atorvastati No 1{table QD Atorvastat n Calcium n Calcium t} in Calcium 20 MG 20 MG 20 MG CeleBREX CeleBREX No 1{capsu BID CeleBREX 100 MG 100 MG le_with 100 MG _food} metFORMIN metFORMIN No metFORMIN HCl 1000 MG HCl 1000 MG HCl 1000 MG Januvia 100 Januvia 100 No 1{table QD Januvia MG MG t} 100 MG Cozaar 100 Cozaar 100 No 1{table QD Cozaar 100 MG MG t} MG Diclofenac Diclofenac No Diclofenac Sodium 1 % Sodium 1 % Sodium 1 % Lantus Lantus No QD Lantus SoloStar SoloStar SoloStar 100 UNIT/ML 100 UNIT/ML 100 UNIT/ML Carvedilol Carvedilol No 1{table BID Carvedilol 12.5 MG 12.5 MG t_with_ 12.5 MG food} Cyclobenzap Cyclobenzap No 1{table Cyclobenza rine HCl 10 rine HCl 10 t_as_ne alicia HCl MG MG eded} 10 MG Losartan Losartan No 1{table QD Losartan Potassium Potassium t} Potassium 100 MG 100 MG 100 MG Pregabalin Pregabalin No 1{capsu BID Pregabalin 50 MG 50 MG le} 50 MG amLODIPine amLODIPine No 1{table amLODIPine Besylate 5 Besylate 5 t} Besylate 5 MG MG MG Glimepiride Glimepiride No 1{table Glimepirid 2 MG 2 MG t} e 2 MG [place] [address] [place] 3 No 1{capsu QD [place] 3 1000 MG 1000 MG le} 1000 MG Lipitor 10 Lipitor 10 No 1{table QD Lipitor 10 MG MG t} MG Gabapentin Gabapentin No Gabapentin 300 MG 300 MG 300 MG Trulicity Trulicity No Trulicity 0.75 0.75 0.75 MG/0.5ML MG/0.5ML MG/0.5ML Atorvastati Atorvastati No 1{table QD Atorvastat n Calcium n Calcium t} in Calcium 20 MG 20 MG 20 MG CeleBREX CeleBREX No 1{capsu BID CeleBREX 100 MG 100 MG le_with 100 MG _food} metFORMIN metFORMIN No metFORMIN HCl 1000 MG HCl 1000 MG HCl 1000 MG Januvia 100 Januvia 100 No 1{table QD Januvia MG MG t} 100 MG Cozaar 100 Cozaar 100 No 1{table QD Cozaar 100 MG MG t} MG Diclofenac Diclofenac No Diclofenac Sodium 1 % Sodium 1 % Sodium 1 % Lantus Lantus No QD Lantus SoloStar SoloStar SoloStar 100 UNIT/ML 100 UNIT/ML 100 UNIT/ML Carvedilol Carvedilol No 1{table BID Carvedilol 12.5 MG 12.5 MG t_with_ 12.5 MG food} Cyclobenzap Cyclobenzap No 1{table Cyclobenza rine HCl 10 rine HCl 10 t_as_ne alicia HCl MG MG eded} 10 MG Losartan Losartan No 1{table QD Losartan Potassium Potassium t} Potassium 100 MG 100 MG 100 MG Pregabalin Pregabalin No 1{capsu BID Pregabalin 50 MG 50 MG le} 50 MG amLODIPine amLODIPine No 1{table amLODIPine Besylate 5 Besylate 5 t} Besylate 5 MG MG MG Glimepiride Glimepiride No 1{table Glimepirid 2 MG 2 MG t} e 2 MG [place] [address] [place] 3 No 1{capsu QD [place] 3 1000 MG 1000 MG le} 1000 MG Lipitor 10 Lipitor 10 No 1{table QD Lipitor 10 MG MG t} MG Gabapentin Gabapentin No Gabapentin 300 MG 300 MG 300 MG Trulicity Trulicity No Trulicity 0.75 0.75 0.75 MG/0.5ML MG/0.5ML MG/0.5ML Atorvastati Atorvastati No 1{table QD Atorvastat n Calcium n Calcium t} in Calcium 20 MG 20 MG 20 MG CeleBREX CeleBREX No 1{capsu BID CeleBREX 100 MG 100 MG le_with 100 MG _food} metFORMIN metFORMIN No metFORMIN HCl 1000 MG HCl 1000 MG HCl 1000 MG NovoLIN NovoLIN No NovoLIN 70/30 70/30 70/30 (70-30) 100 (70-30) 100 (70-30) UNIT/ML UNIT/ML 100 UNIT/ML Aspirin 81 Aspirin 81 No 1{table QD Aspirin 81 81 MG 81 MG t} 81 MG metFORMIN metFORMIN No metFORMIN HCl 1000 MG HCl 1000 MG HCl 1000 MG amLODIPine amLODIPine No 1{table QD amLODIPine Besylate 5 Besylate 5 t} Besylate 5 MG MG MG Dicyclomine Dicyclomine No 1{table QID Dicyclomin HCl 20 MG HCl 20 MG t} e HCl 20 MG Metoclopram Metoclopram No 1{table BID Metoclopra king HCl 10 king HCl 10 t_befor mide HCl MG MG e_meals 10 MG } Atorvastati Atorvastati No 1{table QD Atorvastat n Calcium n Calcium t} in Calcium 40 MG 40 MG 40 MG Losartan Losartan No 1{table QD Losartan Potassium Potassium t} Potassium 100 MG 100 MG 100 MG Fluconazole Fluconazole No 1{table Fluconazol 100 MG 100 MG t} e 100 MG amLODIPine amLODIPine No 1{table QD amLODIPine Besylate 10 Besylate 10 t} Besylate MG MG 10 MG RABEprazole RABEprazole No 1{table TID RABEprazol Sodium 20 Sodium 20 t} e Sodium MG MG 20 MG Carvedilol Carvedilol No 1{table BID Carvedilol 12.5 MG 12.5 MG t_with_ 12.5 MG food} Clarithromy Clarithromy No 1{table BID Clarithrom rj 500 MG jr 500 MG t} ycin 500 MG Glimepiride Glimepiride No 1{table Glimepirid 4 MG 4 MG t} e 4 MG Trulicity Trulicity No Trulicity 0.75 0.75 0.75 MG/0.5ML MG/0.5ML MG/0.5ML Immunizations Ordered Immunization Filled Immunization Date Status Commen ts Source Name Name Prevnar 20 (PCV20) Prevnar 20 (PCV20) 2023-04-02 Completed [facility] 16:46:00 - [facility] FLUZONE HIGH DOSE FLUZONE HIGH DOSE 2023-02-23 Completed [facility] OVER [facility] 15:37:00 - [facility] FluAD FluAD 2021-10-04 Completed [facility] 09:57:00 - [facility] FluAD FluAD 2021-10-04 Completed [facility] 09:57:00 - [facility] FluAD FluAD 2021-10-04 Completed [facility] 09:57:00 - [facility] FluAD FluAD 2021-10-04 Completed [facility] 09:57:00 - [facility] FluAD FluAD 2021-10-04 Completed [facility] 09:57:00 - [facility] FluAD FluAD 2021-10-04 Completed [facility] 09:57:00 - [facility] FluAD FluAD 2021-10-04 Completed [facility] 09:57:00 - [facility] FluAD FluAD 2021-10-04 Completed [facility] 09:57:00 - [facility] FluAD FluAD 2021-10-04 Completed [facility] 09[facility]57:00 - [facility] FluAD FluAD 2021-10-04 Completed [facility] 09:57:00 - [facility] FluAD FluAD 2021-10-04 Completed [facility] 09:57:00 - [facility] FluAD FluAD 2021-10-04 Completed [facility] 09:57:00 - [facility] FluAD FluAD 2021-10-04 Completed [facility] 09:57:00 - [facility] FluAD FluAD 2021-10-04 Completed [facility] 09:57:00 - [facility] FluAD FluAD 2021-10-04 Completed [facility] 09:57:00 - [facility] FluAD FluAD 2021-10-04 Completed [facility] 09:57:00 - [facility] FluAD FluAD 2021-10-04 Completed [facility] 09:57:00 - [facility] FluAD FluAD 2021-10-04 Completed [facility] 09:57:00 - [facility] FluAD FluAD 2020-09-03 Completed [facility] 12[facility]28:00 - [facility] FluAD FluAD 2020-09-03 Completed [facility] 12:28:00 - [facility] FluAD FluAD 2020-09-03 Completed [facility] 12:28:00 - [facility] FluAD FluAD 2020-09-03 Completed [facility] 12[facility]28:00 - [facility] FluAD FluAD 2020-09-03 Completed [facility] 12:28:00 - [facility] FluAD FluAD 2020-09-03 Completed [facility] 12:28:00 - [facility] FluAD FluAD 2020-09-03 Completed [facility] 12:28:00 - [facility] FluAD FluAD 2020-09-03 Completed [facility] 12:28:00 - [facility] FluAD FluAD 2020-09-03 Completed [facility] 12:28:00 - [facility] FluAD FluAD 2020-09-03 Completed [facility] 12:28:00 - [facility] FluAD FluAD 2020-09-03 Completed [facility] 12:28:00 - [facility] FluAD FluAD 2020-09-03 Completed [facility] 12:: - [facility] FluAD FluAD 2020-09-03 Completed [facility] 12::00 - [facility] FluAD FluAD 2020-09-03 Completed [facility] 12::00 - [facility] FluAD FluAD 2020-09-03 Completed [facility] 12:28:00 - [facility] FluAD FluAD 2020-09-03 Completed [facility] 12:28:00 - [facility] FluAD FluAD 2020-09-03 Completed [facility] 12:28:00 - [facility] FluAD FluAD 2020-09-03 Completed [facility] 12:28:00 - [facility] FluAD FluAD 2020-09-03 Completed [facility] 12:28:00 - [facility] FluAD FluAD 2019-10-03 Completed [facility] 16:47:00 - [facility] FluAD FluAD 2019-10-03 Completed [facility] 16:47:00 - [facility] FluAD FluAD 2019-10-03 Completed [facility] 16:47:00 - [facility] FluAD FluAD 2019-10-03 Completed [facility] 16:47:00 - [facility] FluAD FluAD 2019-10-03 Completed [facility] 16:47:00 - [facility] FluAD FluAD 2019-10-03 Completed [facility] 16:47:00 - [facility] FluAD FluAD 2019-10-03 Completed [facility] 16:47:00 - [facility] FluAD FluAD 2019-10-03 Completed [facility] 16:47:00 - [facility] FluAD FluAD 2019-10-03 Completed [facility] 16:47:00 - [facility] FluAD FluAD 2019-10-03 Completed [facility] 16:47:00 - [facility] FluAD FluAD 2019-10-03 Completed [facility] 16:47:00 - [facility] FluAD FluAD 2019-10-03 Completed [facility] 16:47:00 - [facility] FluAD FluAD 2019-10-03 Completed [facility] 16:47:00 - [facility] FluAD FluAD 2019-10-03 Completed [facility] 16:47:00 - [facility] FluAD FluAD 2019-10-03 Completed [facility] 16:47:00 - [facility] FluAD FluAD 2019-10-03 Completed [facility] 16:47:00 - [facility] FluAD FluAD 2019-10-03 Completed [facility] 16:47:00 - [facility] FluAD FluAD 2019-10-03 Completed [facility] 16:47:00 - [facility] FluAD FluAD 2019-10-03 Completed [facility] 16:47:00 - [facility] FluAD FluAD 2019-10-03 Completed [facility] 00:00:00 - [facility] Afluria Afluria 2018-08-29 Completed [facility] 10:24:00 - [facility] Afluria Afluria 2018-08-29 Completed [facility] 10:24:00 - [facility] Afluria Afluria 2018-08-29 Completed [facility] 10:24:00 - [facility] Afluria Afluria 2018-08-29 Completed [facility] 10:24:00 - [facility] Afluria Afluria 2018-08-29 Completed [facility] 10:24:00 - [facility] Afluria Afluria 2018-08-29 Completed [facility] 10:24:00 - [facility] Afluria Afluria 2018-08-29 Completed [facility] 10:24:00 - [facility] Afluria Afluria 2018-08-29 Completed [facility] 10:24:00 - [facility] Afluria Afluria 2018-08-29 Completed [facility] 10:24:00 - [facility] Afluria Afluria 2018-08-29 Completed [facility] 10:24:00 - [facility] Afluria Afluria 2018-08-29 Completed [facility] 10:24:00 - [facility] Afluria Afluria 2018-08-29 Completed [facility] 10:24:00 - [facility] Afluria Afluria 2018-08-29 Completed [facility] 10:24:00 - [facility] Afluria Afluria 2018-08-29 Completed [facility] 10:24:00 - [facility] Afluria Afluria 2018-08-29 Completed [facility] 10::00 - [facility] Afluria Afluria 2018-08-29 Completed [facility] 10::00 - [facility] Afluria Afluria 2018-08-29 Completed [facility] 10::00 - [facility] Afluria Afluria 2018-08-29 Completed [facility] 10::00 - [facility] Afluria Afluria 2018-08-29 Completed [facility] 10::00 - [facility] Afluria Afluria 2018-08-29 Completed [facility] 00:00:00 - [facility] Vital Signs Vital Name Observation Time Observation Value Comments Source Systolic blood 2022-12-22 17:35:00 161 mm[Hg] Univer sity pressure [facility] Diastolic blood 2022-12-22 17:35:00 52 [facility]Hg[facility]12-22 17:35:00 80 /min [facility] Body temperature 2022-12-22 17:35:00 37.11 [facility] Respiratory rate 2022-12-22 17:35:00 20 /min [facility] Body height 2022-12-22 17:35:00 149.9 cm [facility] Body weight 2022-12-22 17:35:00 61.236 kg [facility] BMI 2022-12-22 17:35:00 27.27 kg/m2 [facility] Oxygen saturation in 2022-12-22 17:35:00 100 /min [facility] by [facility] Pulse oximetry Branch height 2022-08-28 13:00:00 59.00 [in_i] [facility] weight 2022-08-28 13:00:00 129.4 [lb_av] Common [facility] temperature 2022-08-28 13:00:00 96.4 [degF] [facility] bmi 2022-08-28 13:00:00 26.13 kg/m2 [facility] oximetry 2022-08-28 13:00:00 98 % [facility] respiratory rate 2022-08-28 13:00:00 16 /min Comm on [facility] blood pressure 2022-08-28 13:00:00 128 mm[Hg] Common [facility] - systolic [facility] blood pressure 2022-08-28 13:00:00 70 mm[Hg] Common [facility] - diastolic [facility] height 2022-07-04 15:40:00 59.00 [in_i] Common [facility] weight 2022-07-04 15:40:00 123.6 [lb_av] [facility] temperature 2022-07-04 15:40:00 97.6 [degF] Common [facility] bmi 2022-07-04 15:40:00 24.96 kg/m2 [facility] oximetry 2022-07-04 15:40:00 100 % [facility] respiratory rate 2022-07-04 15:40:00 18 /min Comm on [facility] blood pressure 2022-07-04 15:40:00 134 mm[Hg] Common [facility] - systolic [facility] blood pressure 2022-07-04 15:40:00 80 mm[Hg] Common [facility] - diastolic [facility] height 2022-05-23 10:20:00 59.00 [in_i] [facility] weight 2022-05-23 10:20:00 124.2 [lb_av] [facility] temperature 2022-05-23 10:20:00 97.1 [degF] [facility] bmi 2022-05-23 10:20:00 25.08 kg/m2 [facility] oximetry 2022-05-23 10:20:00 99 % [facility] respiratory rate 2022-05-23 10:20:00 18 /min Comm on [facility] blood pressure 2022-05-23 10:20:00 150 mm[Hg] [facility] - systolic [facility] blood pressure 2022-05-23 10:20:00 68 mm[Hg] Common [facility] - diastolic [facility] height 2022-03-21 11:40:00 59.00 [in_i] [facility] weight 2022-03-21 11:40:00 122.0 [lb_av] [facility] temperature 2022-03-21 11:40:00 97.6 [degF] [facility] bmi 2022-03-21 11:40:00 24.64 kg/m2 [facility] oximetry 2022-03-21 11:40:00 100 % [facility] respiratory rate 2022-03-21 11:40:00 16 /min [facility] on [facility] blood pressure 2022-03-21 11:40:00 139 mm[Hg] [facility] - systolic [facility] blood pressure 2022-03-21 11:40:00 79 mm[Hg] [facility] - diastolic [facility] height 2021-11-24 13:20:00 59.00 [in_i] [facility] weight 2021-11-24 13:20:00 130 [lb_av] [facility] temperature 2021-11-24 13:20:00 97.6 [degF] [facility] bmi 2021-11-24 13:20:00 26.25 kg/m2 [facility] oximetry 2021-11-24 13:20:00 98 % [facility] respiratory rate 2021-11-24 13:20:00 20 /min Comm on [facility] blood pressure 2021-11-24 13:20:00 128 mm[Hg] [facility] - systolic [facility] blood pressure 2021-11-24 13:20:00 64 mm[Hg] [facility] - diastolic [facility] height 2021-10-04 09:40:00 59.00 [in_i] [facility] weight 2021-10-04 09:40:00 134.6 [lb_av] [facility] temperature 2021-10-04 09:40:00 97.2 [degF] [facility] bmi 2021-10-04 09:40:00 27.18 kg/m2 [facility] oximetry 2021-10-04 09:40:00 99 % [facility] respiratory rate 2021-10-04 09:40:00 16 /min [facility] on [facility] blood pressure 2021-10-04 09:40:00 136 mm[Hg] [facility] - systolic [facility] blood pressure 2021-10-04 09:40:00 50 mm[Hg] [facility] - diastolic [facility] height 2021-10-04 09:00:00 59.00 [in_i] [facility] weight 2021-10-04 09:00:00 134.6 [lb_av] [facility] temperature 2021-10-04 09:00:00 97.2 [degF] [facility] bmi 2021-10-04 09:00:00 27.18 kg/m2 [facility] oximetry 2021-10-04 09:00:00 99 % [facility] respiratory rate 2021-10-04 09:00:00 16 /min [facility] blood pressure 2021-10-04 09:00:00 136 mm[Hg] [facility] - systolic [facility] blood pressure 2021-10-04 09:00:00 50 mm[Hg] Common [facility] - diastolic [facility] Procedures Procedure Date / Time Performing Clinician Source Performed CT ANGIOGRAM 2022-12-22 19:47:00 Guy Walsh [facility] ABDOMEN/PELVIS Medical Branch COMP. METABOLIC PANEL 2022-12-22 18:36:00 Guy Walsh [facility] ([id number]) Medical Branch CBC WITH DIFF 2022-12-22 18:36:00 Guy Walsh [facility] PROTHROMBIN TIME / INR 2022-12-22 18:36:00 Guy Walsh [facility] ACTIVATED PARTIAL 2022-12-22 18:36:00 Guy Walsh [facility] THRMPLAS DINORA Medical Branch ASSIGNMENT OF BENEFITS 2022-12-22 18:24:36 Doctor Unassigned, No [facility] Medical [facility] CONSENT/REFUSAL FOR 2022-12-22 17:31:40 [facility] Medical Branch DEXA AXIAL (HIP AND 2022-06-01 14:45:00 [facility] SPINE) Medical Branch CONSENT/REFUSAL FOR 2022-06-01 13:22:37 Doctor Unassigned, No Un [facility] DIAGNOSIS AND TREATMENT Name Medical Branch ASSIGNMENT OF BENEFITS 2022-06-01 13:22:02 Doctor Unassigned, No [facility] AUTHORIZATION FOR 2022-03-22 05:01:00 Doctor Unassigned, No [facility] RELEASE OF PHI Name Medical Branch Encounters Start End Encounter Admission Attending Care Care Encounter Source Date/Time Date/Time Type Type Clinicians Facility Department ID 2023-01-09 Outpatient IZA Ramirez [facility] [id number] [facility] 12:08:00 Lucy [id number] [facility] 2023-01-03 Outpatient Dunia, STLMLC [facility] [id number] [facility] 15:36:00 Nelda [id number] [facility] 2022-12-29 Outpatient Dunia, STLMLC ST[facility]C [id number] [facility] 15:49:00 Nelda [id number] [facility] 2022-12-26 Outpatient Dunia, STLMLC ST[facility]C [id number] [facility] 15:53:00 Nelda [id number] [facility] 2022-12-22 Outpatient Dunia, STLMLC STL[facility]C [id number] [facility] 14:32:00 Nelda [id number] [facility] 2022-09-05 Outpatient Thompson, Na STLMLC ST[facility]C [id number] [facility] 08:43:00 [facility] 2022-08-24 Outpatient Thompson, Na STLMLC STLMLC [id number] [facility] 10:15:00 [facility] 2022-08-22 Outpatient Thompson, Na STLMLC STLMLC [id number] [facility] 11:32:01 [facility] 2022-08-21 Outpatient Thompson, Na STLMLC STLMLC [id number] [facility] 15:11:00 [facility] 2022-06-30 Outpatient Thompson, Na STLMLC STLMLC [id number] [facility] 10:39:00 [facility] 2022-06-07 Outpatient Thompson, Na STLMLC STLMLC [id number] [facility] 10:35:01 [facility] 2021-12-21 Outpatient Thompson, Na STLMLC STLMLC [id number] 2 [facility] 14:28:54 [id number] [facility] 2021-12-21 Outpatient Thompson, Na STLMLC STLMLC [id number] 2 [facility] 13:09:42 [id number] [facility] 2021-12-21 Outpatient Thompson, Na STLMLC STLMLC [id number] 2 Common 13:05:19 [id number] [facility] 2021-12-21 Outpatient Thopmson, Na STLMLC STLMLC [id number] 2 Common 12:59:51 [id number] [facility] 2021-12-21 Outpatient Thompson, Na STLMLC STLMLC [id number] 2 Common 12:59:20 [id number] [facility] 2021-12-21 Outpatient Thompson, Na STLMLC STLMLC [id number] 2 Common 12:49:37 [id number] [facility] 2021-12-21 Outpatient Thompson, Na STLMLC STLMLC [id number] 2 Common 12:44:54 [id number] [facility] 2021-12-21 Outpatient Thompson, Na STLMLC STLMLC [id number] 2 Common 12:44:22 [id number] [facility] 2021-12-21 Outpatient Thompson, Na STLMLC STLMLC [id number] 2 Common 12:39:42 [id number] [facility] 2021-12-21 Outpatient Thompson, Na STLMLC STLMLC [id number] 2 Common 12:38:55 [id number] [facility] 2021-12-21 Outpatient Thompson, Na STLMLC STLMLC [id number] 2 Common 12:30:27 [id number] [facility] 2021-12-21 Outpatient Thompson, Na STLMLC STLMLC [id number] 2 Common 12:27:31 [id number] [facility] 2021-12-21 Outpatient Thompson, Na STLMLC STLMLC [id number] 2 Common 11:53:32 [id number] [facility] 2021-12-21 Outpatient Thompson, Na STLMLC STLMLC [id number] 2 Common 11:52:44 [id number] [facility] 2021-12-21 Outpatient Thompson, Na STLMLC STLMLC [id number] 2 Common 11:39:09 [id number] [facility] 2021-12-21 Outpatient Thompson, Na STLMLC STLMLC [id number] 2 Common 11:30:03 92300 [facility] 2021-12-21 Outpatient Thompson, Na STLMLC STLMLC [id number] 2 Common 11:12:27 [id number] [facility] 2021-12-21 Outpatient Thompson, Na STLMLC STLMLC [id number] 2 Common 11:05:33 [id number] [facility] 2022-12-22 2022-12-22 Emergency [facility] ERT [id number] Univers 11:37:00 16:53:00 GUY bright [facility] 2022-12-22 2022-12-22 [facility] [id number] Univers 11:37:00 16:53:00 [place] 350.1.13.10 i [facility] 4.2.7.2[address] [facility] [id number] [address] 2022-12-22 2022-12-22 (TEL) STLMLC STLMLC [id number] Co mmon 00:00:00 00:00:00 [facility] 2022-08-29 2022-08-29 (TEL) STLMLC STLMLC [id number] Co mmon 00:00:00 00:00:00 [facility] 2022-08-28 2022-08-28 OFFICE STLMLC STLMLC [id number] Co mmon 00:00:00 00:00:00 VISIT [facility] LEVEL 4 [facility] 2022-08-16 2022-08-16 (TEL) STLMLC STLMLC [id number] Co mmon 00:00:00 00:00:00 [facility] 2022-07-17 2022-07-17 (TEL) STLMLC STLMLC [id number] Co mmon 00:00:00 00:00:00 [facility] 2022-07-04 2022-07-04 OFFICE STLMLC STLMLC [id number] Co mmon 00:00:00 00:00:00 VISIT EST Spir it PT LEVEL 3 - [facility] 2022-06-06 2022-06-06 (TEL) STLMLC STLMLC [id number] Co mmon 00:00:00 00:00:00 [facility] 2022-06-01 2022-06-01 Outpatient R RADIOLOGY [facility] [id number] Univers 08:27:10 23:59:00 ity of [facility] 2022-06-01 2022-06-01 [facility] Radiology [facility] 1.2.840.114 [id number] Univers 08:27:10 23:59:00 Encounter [place] 350.1.13.10 ity of [place] 4.2.7.2.686 [facility] [id number] [address] 2022-06-01 2022-06-01 [facility] Radiology [facility] 1.2.840.114 [id number] Univers 08:24:50 08:26:00 Encounter [place] 350.1.13.10 ity of [place] 4.2.7.2.686 [facility] [id number] [address] 2022-05-30 2022-05-30 (TEL) STLMLC STLMLC [id number] Co mmon 00:00:00 00:00:00 [facility] 2022-05-24 2022-05-24 (TEL) STLMLC STLMLC [id number] Co mmon 00:00:00 00:00:00 [facility] 2022-05-23 2022-05-23 OFFICE STLMLC STLMLC [id number] Co mmon 00:00:00 00:00:00 VISIT [facility] PT [facility] [employer] LEVEL 4 [facility] 2022-03-24 2022-03-24 Outpatient R MARGIE-KU [facility] [id number] Univers 09:00:00 09:00:00 deangelo [facility] 2022-03-24 2022-03-24 Outpatient R [facility] [id number] Univers 09:00:00 09:00:00 deangelo P[facility] 2022-03-22 2022-03-22 Orders Doctor BERNABE [id number] [id number] Univers 00:00:00 00:00:00 Only Unassigned, JAVON 350.1.13.10 ity of [place] [facility] 4.2.7.2.686 [place] [id number] [facility] [address] 2022-03-21 2022-03-[address] [facility] [facility] [id number] Co mmon 00:00:00 00:00:00 VISIT EST Spir it PT LEVEL 3 - [facility] 2022-03-17 2022-03-17 Office KEVNO Conner [id number] Univers 14:00:00 14:18:21 Visit [facility] 350.1.13.10 i ty of [facility] [place] [id number] [facility] [address] 2022-03-17 2022-03-17 Outpatient R BRITTNI [facility] [id number] Univers 14:00:00 14:18:21 [facility] ity [facility] 2022-03-17 2022-03-17 Outpatient R BRITTNI [facility] [id number] Univers 14:00:00 14:00:00 [facility] ity [facility] 2022-03-13 2022-03-13 Transition MESFIN Harrell 1.2.840.114 [id number] Univers 00:00:00 00:00:00 of Care Emily PELAYO 350.1.13.10 [place] [id number] [facility] [address] 2022-03-13 2022-03-13 Transition HarrellMESFIN 1.2.840.114 [id number] Univers 00:00:00 00:00:00 of Care Emily PELAYO 350.1.13.10 [place] [id number] [facility] [address] 2022-03-13 2022-03-13 (TEL) [facility] [id number] Co mmon 00:00:00 00:00:00 Spirit [facility] 2022-03-08 2022-03-10 [facility] F[facility]LIX [id number] Univers 23:29:00 20:45:00 AVA ity [facility] 2022-03-08 2022-03-10 Hospital AMAURY Conner 1.2.840.114 [id number] Univers 23:29:00 20:45:00 Encounter Ava ALEJANDRO 350.1.13.10 ity of [facility] 4.2.7.2.686 [place] [id number] [facility] [address] 2022-03-09 2022-03-09 Surgery AMAURY Conner 1.2.840.114 [id number] Univers 15:30:00 17:26:00 Ava ALEJANDRO 350.1.13.10 it y of [facility] 4.2.7.2.686 [place] [id number] [facility] [address] 2022-03-08 2022-03-08 Emergency X [facility] ERT [id number] Univers 19:51:00 22:00:00 [facility] 2022-03-08 Emergency [facility] [id number] Univers 19:51:00 22:00:00 Gabriel Isabel JAMI 350.1.13.10 i ty [facility] [place].686 [place] [facility] [id number] [facility] [address] 2022-03-08 2022-03-08 Orders Doctor BERNABE 1.2.840.114 [id number] Univers 00:00:00 00:00:00 Only Unassigned, JAVON 350.1.13.10 ity of [place] [facility] 4.2.7.2.686 [place] [id number] [facility] [address] 2022-02-28 2022-02-28 (TEL) [facility] [id number] Co mmon 00:00:00 00:00:00 [facility] 2021-11-29 2021-11-29 (TEL) [facility] [id number] Co mmon 00:00:00 00:00:00 [facility] 2021-11-24 2021-11-24 OFFICE STLMLC STLMLC [id number] Co mmon 00:00:00 00:00:00 VISIT EST Spir it PT LEVEL 3 [facility] 2021-10-04 2021-10-04 OFFICE STLMLC STLMLC [id number] Co mmon 00:00:00 00:00:00 VISIT EST Spir it PT LEVEL 3 [facility] 2021-10-04 2021-10-04 SUB ANNUAL STLMLC STLMLC [id number] Common 00:00:00 00:00:00 MCR [facility] VISIT [facility] 2021-09-28 2021-09-28 (TEL) STLMLC STLMLC [id number] Co mmon 00:00:00 00:00:00 [facility] 2021-07-13 2021-07-13 Outpatient STLMLC STLMLC [id number] Common 00:00:00 00:00:00 [facility] 2021-07-01 2021-07-01 Outpatient STLMLC STLMLC [id number] Common 00:00:00 00:00:00 [facility] 2021-05-31 2021-05-31 Outpatient STLMLC STLMLC [id number] Common 00:00:00 00:00:00 [facility] 2021-03-03 2021-03-03 Outpatient STLMLC STLMLC [id number] Common 00:00:00 00:00:00 [facility] 2021-02-22 2021-02-22 Outpatient STLMLC STLMLC [id number] Common 00:00:00 00:00:00 [facility] 2021-02-18 2021-02-18 Outpatient STLMLC STLMLC [id number] Common 00:00:00 00:00:00 [facility] 2021-02-08 2021-02-08 Outpatient STLMLC STLMLC [id number] Common 00:00:00 00:00:00 [facility] 2021-02-04 2021-02-04 Outpatient STLMLC STLMLC [id number] Common 00:00:00 00:00:00 [facility] 2021-01-07 2021-01-07 Outpatient STLMLC STLMLC [id number] Common 00:00:00 00:00:00 [facility] 2021-01-06 2021-01-06 Outpatient STLMLC STLMLC [id number] Common 00:00:00 00:00:00 [facility] 2020-10-15 2020-10-15 Outpatient STLMLC STLMLC [id number] Common 00:00:00 00:00:00 [facility] 2020-09-03 2020-09-03 Outpatient STLMLC STLMLC [id number] Common 00:00:00 00:00:00 [facility] 2020-09-03 2020-09-03 Outpatient STLMLC STLMLC [id number] Common 00:00:00 00:00:00 [facility] 2020-08-11 2020-08-11 Outpatient STLMLC STLMLC [id number] Common 00:00:00 00:00:00 [facility] 2020-08-04 2020-08-04 [facility] [id number] Common 10:00:00 10:00:[address] [place] [address] Drive [facility] 2020-08-03 2020-08-03 [facility] [id number] Common 11:15:00 11:15:[address] [place] [address] Sp[address] Drive [facility] 2020-07-15 2020-07-15 [facility] [id number] Common 09:40:00 09:40:[address] [place] [address] Sp[address] Drive [facility] 2020-07-07 2020-07-07 [facility] [id number] Common 16:09:00 16:09:[address] [place] [address] Sp[address] Drive [facility] 2020-06-03 2020-06-03 [facility] [id number] Common 10:40:00 10:40:[address] [place] [address] Sp[address] Drive [facility] 2020-04-12 2020-04-12 [facility] [id number] Common 10:00:00 10:00:00 [address] [place] [address] Sp[address] Drive [facility] 2020-02-09 2020-02-09 Emergency Maik Lewis [facility] 1.2.840.114 [id number] 10:21:23 12:38:00 [place] 350.1.13.10 [place] 4.2.7.2.686 [place] [id number] [facility] 2020-02-09 2020-02-09 Emergency Maik Lewis [facility] 1.2.840.114 [id number] Univers 10:21:23 12:38:00 T [place] 350.1.13.10 i ty of [place] 4.2.7.2.686 [facility] [id number] [address] 2020-02-09 2020-02-09 Emergency X MAIK LEWIS [facility] ERT [id number] Univers 10:21:23 12:38:00 ity of [facility] 2020-02-09 2020-02-09 [facility] [id number] Common 08:31:00 08:31:[address] [place] [address] Sp[address] Drive [facility] 2020-01-30 2020-01-30 [facility] [id number] Common 14:20:00 14:20:[address] [place] [address] Sp[address] Drive [facility] 2020-01-01 2020-01-01 Out[facility] [id number] Common 10:00:00 10:00:[address] [place] [address] Sp[address] Drive [facility] 2019-10-03 2019-10-03 [facility] [id number] Common 15:20:00 15:20:00 [address] [place] [address] Sp[address] Drive [facility] 2019-06-05 2019-06-05 [facility] [id number] Common 13:40:00 13:40:[address] [place] [address] Sp[address] Drive [facility] 2019-03-06 2019-03-06 [facility] [id number] Common 09:16:00 09:16:[address] [place] [address] Sp[address] Drive [facility] 2019-01-27 2019-01-27 [facility] [id number] Common 09:45:00 09:45:[address] [place] [address] Sp[address] Drive [facility] 2018-12-12 2018-12-12 Out[facility] [id number] Common 14:44:00 14:44:00 [address] [place] [address] Sp[address] Drive [facility] 2018-08-29 2018-08-29 Out[facility] [id number] Common 08:15:00 08:15:00 [address] [place] [address] Sp[address] Drive [facility] 2018-08-09 2018-08-09 [facility] [id number] Common 08:45:00 08:45:00 [address] [place] [address] Sp[address] Drive [facility] 2018-07-01 2018-07-01 Out[facility] [id number] Common 08:30:00 08:30:00 [address] [place] [address] Sp[address] Drive [facility] 2018-04-30 2018-04-30 [facility] [id number] Common 10:45:00 10:45:[address] [place] [address] Sp[address] Drive [facility] Results Test Description Test Time Test Comments Results Result Comments Source ACTIVATED PARTIAL ISAAC FARIAS 2022-12-22 19:10:25 Test Item Value Reference Range Interpretation Comme nts APTT Patient (test code = See_Comment [ Automated message] The 3173-2) system which ge nerated this result tra nsmitted reference range : 23 - 38 Seconds. The re ference range was not u sed to interpret this result as normal/abnormal . KAYLYN (test code = KAYLYN) The [facility] patient population mean normal value for aPTT is 30 seconds. Lab Interpretation (test Normal code = 62653-7) [id number] 19:08:23 Test Item Value Reference Range Interpretation Comments PROTIME PATIENT (test See_Comment [Auto mated message] code = 5964-2) The system wh ich generated this result transmitted ref erence range: 12.0 - 1 4.7 Seconds. The re ference range was not u sed to interpret this result as normal/abnor mal. INR (test code = 6301-6) Nor mal INR <1.1; Warfarin Therap eutic range 2.0 to 3. 0 or 2.5 to 3.5, dep ending upon the indica tions. Lab Interpretation (test Normal code = 18263-4) [facility] WITH [id number] 19:06:05 Test Item Value Reference Range Interpretation Comments WBC (test code = See_Comment [Automated 6690-2) message] The sy stem which generated this result transmitted reference range : 4.30 - 11.10 10*3/?L. The reference range was not used to interpret this result as normal/abnormal . RBC (test code = See_Comment [Automated 789-8) message] The sy stem which generated this result transmitted reference range : 3.93 - 5.25 10*6/?L. The reference range was not used to interpret this result as normal/abnormal . HGB (test code = 11.4 g/dL 11.6-15.0 L 718-7) HCT (test code = 34.2 % 35.7-45.2 L 4544-3) MCV (test code = 87.0 fL 80.6-95.5 787-2) MCH (test code = 29.0 pg 25.9-32.8 785-6) MCHC (test code = 33.3 g/dL 31.6-35.1 786-4) RDW-SD (test code = 40.5 fL 39.0-49.9 64379-3) RDW-CV (test code = 12.7 % 12.0-15.5 788-0) PLT (test code = See_Comment [Automated 777-3) message] The sy stem which generated this result transmitted reference range : 166 - 358 10*3/ ?L. The reference r aleksandar was not used to interpret this result as normal/abnormal . MPV (test code = 13.8 fL 9.5-12.9 H 73102-9) IPF % (test code = 19.9 % 1.3-7.7 H Platelet count 1676283215) measured by fluorescence method. NRBC/100 WBC (test See_Comment [Automat ed code = 3508345759) message] The system which generated this result transmitted reference range : 0.0 - 10.0 /100 WBCs. The refer ence range was not u sed to interpret th is result as normal/abnormal . NRBC x10^3 (test code See_Comment [Auto mated = 0257811556) message] The s ystem which generated this result transmitted reference range : 10*3/?L. The reference range was not used to interpret this result as normal/abnormal . GRAN MAT (NEUT) % 65.3 % (test code = 770-8) IMM GRAN % (test code 0.40 % = 1326676401) LYMPH % (test code = 22.6 % 736-9) MONO % (test code = 7.9 % 5905-5) EOS % (test code = 2.9 % 713-8) BASO % (test code = 0.9 % 706-2) GRAN MAT x10^3(ANC) 5.20 10*3/uL 1.88-7.09 (test code = 7469168376) IMM GRAN x10^3 (test 0.03 10*3/uL 0.00-0.06 code = 2091535634) LYMPH x10^3 (test code 1.80 10*3/uL 1.32-3.29 = 731-0) MONO x10^3 (test code 0.63 10*3/uL 0.33-0.92 = 742-7) EOS x10^3 (test code = 0.23 10*3/uL 0.03-0.39 711-2) BASO x10^3 (test code 0.07 10*3/uL 0.01-0.07 = 704-7) Lab Interpretation Abnormal (test code = 51387-5) [facility]. METABOLIC PANEL ([id number])2022-12-22 18:59:05 Test Item Value Reference Range Interpretation Comments NA (test code = 136 mmol/L 135-145 1328061777) K (test code = 5.2 mmol/L 3.5-5.0 H 7202988610) CL (test code = 102 mmol/L 98-108 8814738062) CO2 TOTAL (test code = 25 mmol/L 23-31 4113471646) AGAP (test code = 2-16 0127146350) BUN (test code = 23 mg/dL 7-23 4151725379) GLUCOSE (test code = 316 mg/dL 70-110 H 5899056376) CREATININE (test code = 0.72 mg/dL 0.50-1.04 7943273261) TOTAL BILI (test code = 0.6 mg/dL 0.1-1.1 5102330916) CALCIUM (test code = 9.2 mg/dL 8.6-10.6 7027170535) T PROTEIN (test code = 7.3 g/dL 6.3-8.2 9241657638) ALBUMIN (test code = 4.3 g/dL 3.5-5.0 2933465792) ALK PHOS (test code = 103 U/L 34-122 8223937777) ALTv (test code = 19 U/L 5-35 2-6) AST(SGOT) (test code = 19 U/L 13-40 0077704998) eGFR (test code = mL/min/1.73m2 3429998696) KAYLYN (test code = KAYLYN) Association of Glomerular Filtration Rate (GFR) and Staging of Kidney Disease* + --+ --+ ------+| GFR (mL/min/1.73 m2) ?| With Kidney Damage ?| ?Without Kidney Damage+ --------+ --------+ +| ?>90 ?| ?Stage one ?| ? Normal ?+ ---+ ---+ -------+| ?60-89 ?| ?Stage two ?| ? Decreased GFR ? + --+ --+ ------+| ?30-59 ?| ?Stage three ?| ? Stage three ? + --+ --+ ------+| ?15-29 ?| ?Stage four ? | ? Stage four ?+ ---+ ---+ -------+| ?<15 (or dialysis) ? ?| ?Stage five ? | ? Stage five ?+ ---+ ---+ -------+ *Each stage assumes the associated GFR level has been in effect for at least three months. ?Stages 1 to 5, with or without kidney disease, indicate chronic kidney disease. Notes: Determination of stages one and two (with eGFR >59mL/min/1.73 m2) requires estimation of kidney damage for at least three months as defined by structural or functional abnormalities of the kidney, manifested by either:Pathological abnormalities or Markers of kidney damage (including abnormalities in the composition of the blood or urine or abnormalities in imaging tests). Lab Interpretation Abnormal (test code = 38854-8) [facility]
--- NOTE | 2023-04-28 15:14 | RAD REPORT ---
EXAM DESCRIPTION: US - Extrem Venous W Compress Ashwin - 04/28/2023 3:03 pm CLINICAL HISTORY: SWELLING COMPARISON: No comparisons TECHNIQUE: Real-time sonographic evaluation of the lower extremity deep venous systems was performed using color Doppler, grayscale, and compression. FINDINGS: Bilateral lower extremities. Normal compressibility, flow augmentation, phasic flow and spontaneous flow is identified in both the left and right lower extremity deep venous systems. No intraluminal filling defects seen. IMPRESSION: No DVT in either lower extremity.
--- NOTE | 2023-04-28 15:25 | RAD REPORT ---
EXAM DESCRIPTION: RAD - Chest Single View - 04/28/2023 3:17 pm CLINICAL HISTORY: sob, swelling COMPARISON: Chest Single View dated 09/05/2018 FINDINGS: Lines: None. Lungs: Diffuse prominence of the pulmonary interstitium. Pleural: Small right effusion . Cardiac: The heart size is within normal limits. Mediastinum: Within normal limits. Bones: No acute fractures. Other: None IMPRESSION: Diffuse prominence of the pulmonary interstitium likely reflecting edema.
[2023-04-28 15:26] LABS: Absolute Lymphocytes (CBC) 1.7 K/uL (0.7-4.9); Hematocrit 31.2 % (36.0-45.0); Lymphocytes % 23.5 % (15.3-44.8); MCV 86.4 fL (80-100); MPV 10.9 fL (7.6-11.3); RBC Red Blood Cell Count 3.61 M/uL (3.86-4.86)
[2023-04-28 15:28] LABS: Protime INR 1.06
[2023-04-28 15:54] LABS: ALT/SGPT 23 U/L (13-56); AST/SGOT 13 U/L (15-37); Albumin 3.8 g/dL (3.4-5.0); Alkaline Phosphatase 107 U/L (45-117); BUN Blood Urea Nitrogen 13 mg/dL (7-18); Bicarbonate 23 mEq/L (21-32); Bilirubin Total 0.3 mg/dL (0.2-1.0); Glomerular Filtration Rate 52 ml/min (=/>90); Glucose Level 331 mg/dL (74-106); Magnesium 1.7 mg/dL (1.6-2.4); NT PRO-BNP 959 pg/mL (<125); Potassium 4.9 mEq/L (3.5-5.1); Protein, Total 7.9 g/dL (6.4-8.2); Sodium Level 135 mEq/L (136-145); Troponin High Sensitivity 4.5 pg/mL (<58.9)
[2023-04-28 15:56] LABS: Bilirubin Direct < 0.1 mg/dL (0-0.2)
[2023-04-28 15:57] LABS: Bilirubin Indirect, Calculated ND mg/dL (0.2-0.8)
--- NOTE | 2023-04-28 16:52 | RAD REPORT ---
EXAM DESCRIPTION: CT - Chest For Pe Angio - 04/28/2023 4:36 pm CLINICAL HISTORY: sob, swelling COMPARISON: No comparisons TECHNIQUE: Dynamically enhanced axial 3 mm thick images of the chest were obtained during administra tion of <100> mL Isovue 370 IV contrast. Coronal and oblique reconstruction images were generated and reviewed. Exam utilizes a protocol for optimal evaluation of pulmonary arterial tree. Maximum intensity projections 3D imaging was utilized All CT scans are performed using dose optimization technique as appropriate and may include automated exposure control or mA/KV adjustment according to patient size. FINDINGS: Chest Wall: No suspicious thyroid nodules or pathologic lymphadenopathy. Lungs: Interlobular septal thickening. , scattered ground-glass opacities, and likely atelectasis as a result of the effusions. Pleura: Moderate right and small left pleural effusion. Mediastinum/priscila: No pathologic lymphadenopathy. Pulmonary arteries/Aorta: No filling defect identified. No aortic aneurysm. Heart: No significant pericardial effusion. Mild cardiomegaly. Coronary artery calcifications. Reflux of contrast into the hepatic veins. Upper abdomen: No acute abnormality. Bones: No acute abnormality. IMPRESSION: Negative for pulmonary embolism. Pulmonary edema with bilateral pleural effusions, moder ate on the right and small on the left.
--- NOTE | 2023-04-28 16:54 | RAD REPORT ---
EXAM DESCRIPTION: CTAbdomen Pelvis W Contrast - 04/28/2023 4:36 pm CLINICAL HISTORY: SWELLING COMPARISON: No comparisons TECHNIQUE: CT of the abdomen and pelvis was performed. All CT scans are performed using dose optimization technique as appropriate and may include automated exposure control or mA/KV adjustment according to patient size. FINDINGS: Lower chest: See same-day chest CT Liver: Periportal edema. Biliary: Gallbladder wall thickening which may be related to heart failure. Stomach: No significant focal abnormality. Duodenum: No significant focal abnormality. Pancreas: No significant abnormality. Spleen: No significant abnormality. Adrenal: No suspicious lesions. Kidney/ureter: No hydronephrosis. No renal calculi. Retroperitoneum: No retroperitoneal adenopathy. Vascular: No aneurysm. Atherosclerosis. Bowel: No significant focal abnormality. Peritoneum: Trace perihepatic ascites. Bladder: Grossly unremarkable. Reproductive: No adnexal masses. Bones: No acute fracture. Other: n/a IMPRESSION: No acute intra-abdominal or pelvic finding. Anasarca. Findings at the liver and gallblad hector likely related to heart failure.
--- NOTE | 2023-04-28 18:22 | ER ---
Nurse's Notes [facility] Name: Rowan Stubbs Age: 68 yrs Sex: Female : 1955 Arrival Date: 04/28/2023 Time: 13:39 Bed 20 Private MD: Diagnosis: Generalized edema;Heart failure, unspecified Presentation: 04/28 14:00 Chief complaint: Patient states: B leg swelling and facial swelling for 2 weeks. + SOB ll1 with exertion. No fever. Coronavirus screen: Vaccine status: Patient reports receiving the 2nd dose of the covid vaccine. Client denies travel out of the [place] in the last 14 days. At this time, the client does not indicate any symptoms associated with coronavirus-19. Ebola Screen: Patient denies travel to an Ebola-affected area in the 21 days before illness onset. Initial Sepsis Screen: Does the patient meet any 2 criteria? No. Patient's initial sepsis screen is negative. Does the patient have a suspected source of infection? No. Patient's initial sepsis screen is negative. Risk Assessment: Do you want to hurt yourself or someone else? Patient reports no desire to harm self or others. Onset of symptoms was April 14, 2023. 14:00 Method Of Arrival: Ambulatory ll1 14:00 Acuity: GUICHO 3 ll1 Historical: - Allergies: 14:01 PENICILLINS; ll1 - Home Meds: 15:00 Glimepiride Oral [Active]; Insulin unknown [Active]; Metformin Oral [Active]; unknown eh3 arthritis med [Active]; - PMHx: 14:01 Diabetes - IDDM; fatty liver; Hyperlipidemia; insomnia; chronic back pain; Allergic ll1 rhinitis; osteoarthritis; - PSHx: 14:01 None; ll1 - Immunization history:: Adult Immunizations up to date, Client reports receiving the 2nd dose of the Covid vaccine. - Social history:: Smoking status: Patient denies any tobacco usage or history of. Screenin:00 [facility] ED Fall Risk Assessment (Adult) Score/Fall Risk Level 0 - 2 = Low Risk. Abuse eh3 screen: Denies threats or abuse. Denies injuries from another. Nutritional screening: No deficits noted. Tuberculosis screening: No symptoms or risk factors identified. Assessment: 14:50 Reassessment: Pt ambulated with steady gate from lobby to ER room 20. [id number] 15:00 General: Appears in no apparent distress. comfortable, Behavior is calm, cooperative, eh3 appropriate for age. Pain: Denies pain. Neuro: Level of Consciousness is awake, alert, obeys commands, Oriented to person, place, time, situation. Cardiovascular: Capillary refill < 3 seconds Patient's skin is warm and dry. Edema is 2+ to left midcalf, left ankle, left foot, left toes, right midcalf, right ankle, right foot and right toes Rhythm is sinus rhythm. Respiratory: Airway is patent Respiratory effort is even, unlabored, Respiratory pattern is regular, symmetrical. GI: Abdomen is round non-distended. : No signs and/or symptoms were reported regarding the genitourinary system. EENT: No signs and/or symptoms were reported regarding the EENT system. Derm: Skin is pink, warm \T\ dry. Musculoskeletal: Circulation, motion, and sensation intact. Range of motion: intact in all extremities. 15:06 Reassessment: Pt stopped taking Metronidazole, Fluconazole on 04/24/23 and eh3 Clarithromycin, Omeprazole on 04/26/23. 16:00 Reassessment: Patient appears in no apparent distress at this time. Patient and/or eh3 family updated on plan of care and expected duration. Pain level reassessed. Patient is alert, oriented x 3, equal unlabored respirations, skin warm/dry/pink. 17:00 Reassessment: Patient appears in no apparent distress at this time. Patient and/or eh3 family updated on plan of care and expected duration. Pain level reassessed. Patient is alert, oriented x 3, equal unlabored respirations, skin warm/dry/pink. 18:00 Reassessment: Patient appears in no apparent distress at this time. Patient and/or eh3 family updated on plan of care and expected duration. Pain level reassessed. Patient is alert, oriented x 3, equal unlabored respirations, skin warm/dry/pink. 19:00 Reassessment: Patient appears in no apparent distress at this time. Patient and/or eh3 family updated on plan of care and expected duration. Pain level reassessed. Patient is alert, oriented x 3, equal unlabored respirations, skin warm/dry/pink. 20:00 Reassessment: Patient appears in no apparent distress at this time. Patient and/or eh3 family updated on plan of care and expected duration. Pain level reassessed. Patient is alert, oriented x 3, equal unlabored respirations, skin warm/dry/pink. 20:07 Reassessment: Nurse to nurse report received by Ever on 2nd floor. eh3 Vital Signs: 14:00 BP 141 / 67; Pulse 71; Resp 18; Temp 98.5; Pulse Ox 96% ; Weight 62.14 kg; Height 4 ft. ll1 11 in. ; Pain 0/10; 15:00 BP 144 / 85; Pulse 74; Resp 16; Pulse Ox 99% on R/A; eh3 16:00 BP 133 / 56; Pulse 65; Resp 16; Pulse Ox 95% on R/A; eh3 17:00 BP 138 / 66; Pulse 63; Resp 16; Pulse Ox 95% on R/A; eh3 18:00 BP 126 / 59; Pulse 66; Resp 16; Pulse Ox 95% on R/A; eh3 19:00 BP 154 / 66; Pulse 67; Resp 16; Pulse Ox 95% on R/A; eh3 20:00 BP 151 / 60; Pulse 67; Resp 18; Pulse Ox 95% on R/A; eh3 14:00 Body Mass Index 27.67 (62.14 kg, 149.86 cm) ll1 14:00 Pain Scale: Adult ll1 ED Course: 13:41 Patient arrived in ED. rg4 13:43 Jae Block PA is PHCP. [facility] 13:43 Will Weinberg MD is Attending Physician. [facility] 14:01 Triage completed. ll1 14:02 Arm band placed on. ll1 14:44 Amaris Jensen, RN is Primary Nurse. eh3 15:00 Patient has correct armband on for positive identification. Placed in gown. Bed in low eh3 position. Call light in reach. Side rails up X2. Adult w/ patient. Client placed on continuous cardiac and pulse oximetry monitoring. NIBP monitoring applied. Door closed. Noise minimized. Warm blanket given. 15:05 US Extremity Venous W Compression Ashiwn In Process Unspecified. EDMS 15:15 Inserted saline lock: 20 gauge in left antecubital area, using aseptic technique. Blood eh3 collected. 15:19 XRAY Chest (1 view) In Process Unspecified. EDMS 16:38 CT Chest For PE Angio In Process Unspecified. EDMS 16:38 CT Abd/Pelvis - IV Contrast Only In Process Unspecified. EDMS 18:21 Mary Escobedo PA-C is Hospitalizing Provider. [facility] 20:14 No provider procedures requiring assistance completed. Patient admitted, IV remains in eh3 place. Administered Medications: 19:20 Drug: Furosemide IVP 40 mg Route: IVP; Site: left antecubital; [facility] 20:15 Follow up: Response: No adverse reaction [facility] Medication: 20:14 VIS not applicable for this client. [facility] Outcome: 18:21 Decision to Hospitalize by Provider. [facility] 20:15 Admitted to Tele accompanied by tech, via wheelchair, room 405, Report called to Ever [facility] 20:15 Condition: stable 20:15 Instructed on the need for admit. 20:45 Patient left the ED. mw Signatures: Dispatcher [employer] EDDanii Rodríguez RN RN Jae Barrera PA PA jmm Garcia, Rubi rg4 Ryan Gonzalez RN RN [id number] Maxine Bates RN RN ll1 Amaris Jensen, JERI RN 3 Corrections: (The following items were deleted from the chart) 15:28 14:50 Reassessment: Pt transported to ER Room 20 via wheelchair from kandy shaw
--- NOTE | 2023-04-28 18:22 | EDPHYS ---
Physician Documentation [facility] Name: Rowan Stubbs Age: 68 yrs Sex: Female : 1955 Arrival Date: 04/28/2023 Time: 13:39 Bed 20 Private MD: ED Physician Will Weinberg HPI: 04/28 14:04 This 68 yrs old Female presents to ER via Ambulatory with complaints of Facial jmm Swelling, Leg Swelling. 14:04 The patient has shortness of breath with light activity. Onset: The symptoms/episode jmm began/occurred gradually, 2 week(s) ago. This is a 68-year-old female with history of diabetes mellitus, hyperlipidemia the presents emerged department with complaints of progressively worsening dyspnea on exertion beginning approximately 2 weeks ago. Patient is currently taking antibiotics for H. pylori. Denies vomiting.. Historical: - Allergies: 14:01 PENICILLINS; ll1 - Home Meds: 15:00 Glimepiride Oral [Active]; Insulin unknown [Active]; Metformin Oral [Active]; unknown eh3 arthritis med [Active]; - PMHx: 14:01 Diabetes - IDDM; fatty liver; Hyperlipidemia; insomnia; chronic back pain; Allergic ll1 rhinitis; osteoarthritis; - PSHx: 14:01 None; ll1 - Immunization history:: Adult Immunizations up to date, Client reports receiving the 2nd dose of the Covid vaccine. - Social history:: Smoking status: Patient denies any tobacco usage or history of. ROS: 14:04 Constitutional: Negative for fever, chills, and weight loss, Cardiovascular: Negative jmm for chest pain, palpitations, and edema. 14:04 Respiratory: Positive for shortness of breath. 14:04 All other systems are negative. Exam: 14:04 Constitutional: This is a well developed, well nourished patient who is awake, alert, jmm and in no acute distress. 14:04 Eyes: EOMI, no conjunctival erythema appreciated ENT: Moist Mucus Membranes Neck: Trachea midline, Supple Chest/axilla: Normal chest wall appearance and motion. Cardiovascular: Regular rate and rhythm. No edema appreciated Respiratory: Normal respirations, no respiratory distress appreciated Abdomen/GI: Non distended Back: Normal ROM Skin: General appearance color normal 14:04 Head/face: Noted is swelling, that is mild. 14:04 Musculoskeletal/extremity: ROM: intact in all extremities, Bilateral pedal edema appreciated, compartments are soft, full dorsalis pedis pulse, neurovascular. 14:04 Skin: Appearance: Color: normal in color. 14:04 Neuro: Orientation: is normal, Mentation: is normal, Memory: is normal, Motor: is normal. 14:04 Psych: Behavior/mood is pleasant, cooperative. Vital Signs: 14:00 BP 141 / 67; Pulse 71; Resp 18; Temp 98.5; Pulse Ox 96% ; Weight 62.14 kg; Height 4 ft. ll1 11 in. ; Pain 0/10; 15:00 BP 144 / 85; Pulse 74; Resp 16; Pulse Ox 99% on R/A; eh3 16:00 BP 133 / 56; Pulse 65; Resp 16; Pulse Ox 95% on R/A; eh3 17:00 BP 138 / 66; Pulse 63; Resp 16; Pulse Ox 95% on R/A; eh3 18:00 BP 126 / 59; Pulse 66; Resp 16; Pulse Ox 95% on R/A; eh3 19:00 BP 154 / 66; Pulse 67; Resp 16; Pulse Ox 95% on R/A; eh3 20:00 BP 151 / 60; Pulse 67; Resp 18; Pulse Ox 95% on R/A; eh3 14:00 Body Mass Index 27.67 (62.14 kg, 149.86 cm) ll1 14:00 Pain Scale: Adult ll1 MDM: 14:04 Patient medically screened. [facility] 22:10 Differential diagnosis: Edema, pulmonary embolism, heart failure. Data reviewed: vital [facility] signs, nurses notes, lab test result(s), radiologic studies, CT scan. Consideration of Admission/Observation Escalation of care including admission/observation considered. Counseling: I had a detailed discussion with the patient and/or guardian regarding: the historical points, exam findings, and any diagnostic results supporting the discharge/admit diagnosis, lab results, radiology results, the need for further work-up and treatment in the hospital. 04/28 14:04 Order name: Basic Metabolic Panel; Complete Time: 16:01 [facility] 04/28 14:04 Order name: CBC with Diff; Complete Time: 15:31 [facility] 04/28 14:04 Order name: LFT's; Complete Time: 16:01 [facility] 04/28 14:04 Order name: Magnesium; Complete Time: 16:01 [facility] 04/28 14:04 Order name: NT PRO-BNP; Complete Time: 16:01 [facility] 04/28 14:04 Order name: PT-INR; Complete Time: 15:31 [facility] 04/28 14:04 Order name: Troponin HS; Complete Time: 16:01 [facility] 04/28 14:04 Order name: XRAY Chest (1 view); Complete Time: 15:31 [facility] 04/28 14:04 Order name: US Extremity Venous W Compression Ashwin; Complete Time: 15:18 [facility] 04/28 16:02 Order name: CT Chest For PE Angio; Complete Time: 17:02 [facility] 04/28 16:02 Order name: CT Abd/Pelvis - IV Contrast Only; Complete Time: 17:02 [facility] 04/28 14:04 Order name: EKG; Complete Time: 14:05 [facility] 04/28 14:04 Order name: Cardiac monitoring; Complete Time: 15:22 [facility] 04/28 14:04 Order name: EKG - Nurse/Tech; Complete Time: 16:11 [facility] 04/28 14:04 Order name: IV Saline Lock; Complete Time: 15:22 [facility] 04/28 14:04 Order name: Labs collected and sent; Complete Time: 15:22 [facility] 04/28 14:04 Order name: O2 Per Protocol; Complete Time: 15:22 [facility] 04/28 14:04 Order name: O2 Sat Monitoring; Complete Time: 15:22 [facility] Administered Medications: 19:20 Drug: Furosemide IVP 40 mg Route: IVP; Site: left antecubital; eh3 20:15 Follow up: Response: No adverse reaction eh3 Disposition Summary: 04/28/23 18:21 Hospitalization Ordered Hospitalization Status: Inpatient Admission [facility] Provider: Mary Escobedo Location: Telemetry/MedSurg (Inpatient) [facility] Condition: Stable [facility] Problem: new jmm Symptoms: are unchanged [facility] Bed/Room Type: Standard [facility] Room Assignment: 405(04/28/23 19:13) mw Diagnosis - Generalized edema jmm - Heart failure, unspecified [facility] Forms: - Medication Reconciliation Form [facility] - SBAR form [facility] Signatures: Dispatcher [employer] EDWA Danii Sanz RN RN Jae Barrera PA PA jmm Lewis, Lynsay RN RN ll1 Amaris Jensen RN RN eh3 Corrections: (The following items were deleted from the chart) 19:13 18:21 carlos srinivasan
[2023-04-28] MEDS ORDERED: FUROSEMIDE 40 MG/4 ML VIAL ONE (18:44)
--- NOTE | 2023-04-28 19:03 | P.HP ---
Certification for Inpatient Patient admitted to: Inpatient With expected LOS: <2 Midnights Patient will require the following post-hospital care: None Practitioner: I am a practitioner with admitting privileges, knowledge of patient current condition, hospital course, and medical plan of care. Services: Services provided to patient in accordance with Admission requirements found in Title 42 Section 412.3 of the Code of Federal Regulations Patient History Date of Service: 04/28/23 Primary Care Provider: Ashley Reason for admission: New Onset CHF History of Present Illness: Ms. Stubbs is a 68 year old female with past medical history of insulin dependent type 2 diabetes, hypertension, hyperlipidemia who presented to the em ergency department with complaints of bilateral leg swelling, facial swelling, and worsening MORAN x 2 weeks. Patient was diagnosed with hpylori after EGD about 2 weeks ago and has been taking metronidazole, fluconazole, clarithromyin, and omeprazole. Her labs today are significant for sodium 135, glucose 330, creatinine 1.15, GFR 52, hemoglobin 10, hematocrit 31, BNP 959. Chest xray showed "diffuse prominence of the pulmonary interstitium likely reflecting edema." Chest CTA showed "negative for pulmonary embolism. Pulmonary edema with bilateral pleural effusions, moderate on the right and small on the left." Ultrasound of BLE negative for DVTs. She was given 40 mg IV lasix in the emergency department. She denies any history of congestive heart failure. Vitals have been stable, O2 satisfactory on room air. We will admit for further management of new onset CHF. Allergies Penicillins Allergy (Verified 03/09/23 15:08) Itching/Hives/Rash Home medications list reviewed: Yes Home Medications: Aspirin [Aspirin EC 81 MG] 81 mg PO DAILY 03/09/23 Atorvastatin Calcium [Lipitor] 40 mg PO DAILY 03/09/23 Carvedilol [Coreg] 25 mg PO BIDWM 03/09/23 Glimepiride [Amaryl] 4 mg PO BIDWM 03/09/23 Insulin 70/30 NPH/Reg Human [Novolin 70/30*] 15 unit SQ BID 03/09/23 Losartan Potassium [Cozaar] 100 mg PO DAILY 03/09/23 Metformin HCl 1,000 mg PO BID 03/09/23 Amlodipine [Norvasc*] 10 mg PO DAILY 04/28/23 - Past Medical/Surgical History Diabetic: Yes -: Insulin Dependent Type 2 Diabetes -: Hypertension -: Hyperlipidemia Past Surgical History: Patient denies surgical history Psychosocial/ Personal History: Patient is . - Social History Smoking Status: Never smoker Alcohol use: No CD- Drugs: No Caffeine use: No Place of Residence: Home Review of Systems Respiratory: SOB with Excertion Cardiovascular: Edema Physical Examination - Vital Signs Temperature: 98.5 F Blood Pressure: 133/56 Pulse: 65 Respirations: 16 Pulse Ox (%): 95 - Physical Exam General: Alert, In no apparent distress HEENT: Atraumatic, EOMI, Sclerae nonicteric Neck: Supple, 2+ carotid pulse no bruit Respiratory: Crackles/rales Cardiovascular: Regular rate/rhythm, Normal S1 S2, Edema Gastrointestinal: Normal bowel sounds, No tenderness Musculoskeletal: No tenderness Integumentary: No rashes Neurological: Normal speech, Normal affect - Studies Laboratory Data (last 24 hrs) 04/28/23 15:17: PT 11.7, INR 1.06 04/28/23 15:17: WBC 7.30, Hgb 10.2 L, Hct 31.2 L, Plt Count 210 04/28/23 15:17: Sodium 135 L, Potassium 4.9, BUN 13, Creatinine 1.15 H, Glucose 331 H, Magnesium 1.7, Total Bilirubin 0.3, AST 13 L, ALT 23, Alkaline Phosphatase 107 Assessment and Plan - Problems (Diagnosis) (1) Congestive heart failure Current Visit: Yes Status: Acute Qualifiers: Heart failure type: unspecified Heart failure chronicity: acute Qualified Code(s): I50.9 - Heart failure, unspecified (2) Hyperlipidemia Current Visit: Yes Status: Chronic Qualifiers: Hyperlipidemia type: unspecified Qualified Code(s): E78.5 - Hyperlipidemia, unspecified (3) Type 2 diabetes mellitus Current Visit: Yes Status: Chronic Qualifiers: Diabetes mellitus termite exterminator insulin use: with termite exterminator use Diabetes mellitus complication status: with hyperglycemia Qualified Code(s): E11.65 - Type 2 diabetes mellitus with hyperglycemia; Z79.4 - [facility] (current) use of insulin - Plan Patient is admitted for further management of new onset CHF. It appears that her symptoms began after starting quadruple therapy for hpylori. Continue diuresis with IV lasix. Obtain echocardiogram. Consult cardiology & nephrology. Monitor intake and output. Fluid restriction. Daily weights. ACHS accu checks with moderate sliding scale and diabetic diet. Check lipid panel, A1c, TSH, iron studies. Monitor and replete electrolytes per protocol. Reconcile and continue home medications. Lovenox for VTE prophylaxis. Full code. Discharge Plan: Home Plan to discharge in: 48 Hours - Advance Directives Does patient have a Living Will: No Does patient have a Durable POA for Healthcare: No - Code Status/Comfort Care Code Status Assessed: Yes Code Status: Full Code Physician Review: Patient Assessed, Agree with Above Assessment and Plan Critical Care: No Time Spent Managing Pts Care (In Minutes): 50
[2023-04-28] MEDS ORDERED: ACETAMINOPHEN 500 MG TAB PO PRN (20:18)
[2023-04-28] MEDS ORDERED: ALBUTEROL 2.5 MG/3 ML NEB SOL NEB PRN (20:18)
[2023-04-28] MEDS ORDERED: ONDANSETRON 4 MG/2 ML VIAL IV PRN (20:18)
[2023-04-28 20:22] VITALS: BMI 27.6
[2023-04-28] MEDS: INSULIN -REGULAR HUMAN 50 UNIT/0.5 ML ML SQ SCH (21:35)
[2023-04-28] MEDS ORDERED: GLUCAGON 1 MG/VIAL IM PRN (23:08)
[2023-04-28] MEDS ORDERED: D50W 25 GM/50 ML SYRINGE IV PRN (23:08)
[2023-04-28] MEDS ORDERED: D10W 125 ML IV PRN (23:11)
[2023-04-29 04:26] LABS: Absolute Lymphocytes (CBC) 1.9 K/uL (0.7-4.9); Hematocrit 30.1 % (36.0-45.0); Lymphocytes % 25.3 % (15.3-44.8); MCV 85.3 fL (80-100); MPV 11.1 fL (7.6-11.3); RBC Red Blood Cell Count 3.53 M/uL (3.86-4.86)
[2023-04-29 05:18] LABS: Magnesium 1.6 mg/dL (1.6-2.4); Phosphorus 3.6 mg/dL (2.5-4.9); Potassium 4.2 mEq/L (3.5-5.1)
[2023-04-29 05:32] LABS: Thyroid Stimulating Hormone 4.89 uIU/mL (0.358-3.740)
[2023-04-29] MEDS ORDERED: MAGNESIUM SULFATE 1 gm IVPB 1 GM/100 ML BAG IV ONE (07:00)
[2023-04-29] MEDS: INSULIN -REGULAR HUMAN 50 UNIT/0.5 ML ML SQ SCH ×4 (07:30→20:25)
[2023-04-29] MEDS: ENOXAPARIN 40 MG/0.4 ML SQ SCH (08:09)
[2023-04-29] MEDS: LOSARTAN POTASSIUM 50 MG TABLET PO SCH (08:10)
[2023-04-29] MEDS: FUROSEMIDE 40 MG/4 ML VIAL IV SCH ×2 (08:11→17:40)
[2023-04-29] MEDS: ASPIRIN EC 81 MG TAB PO SCH (08:11)
[2023-04-29] MEDS: carvediloL 25 MG TAB PO SCH ×2 (08:12→17:41)
[2023-04-29] MEDS: ATORVASTATIN 40 MG TAB PO SCH (08:12)
[2023-04-29] MEDS: AMLODIPINE 10 MG TAB PO SCH (08:12)
[2023-04-29] MEDS: INSULIN 70/30 100 UNITS/ML SQ SCH ×2 (09:25→17:41)
--- NOTE | 2023-04-29 09:58 | P.PN ---
Subjective Date of Service: 04/29/23 Primary Care Provider: Ashley Chief Complaint: New Onset CHF Subjective: No new changes, Improving Physical Examination - Vital Signs Temperature: 97.7 F Blood Pressure: 134/64 Pulse: 67 Respirations: 16 Pulse Ox (%): 94 - Physical Exam General: Alert, Oriented x3 HEENT: Atraumatic, Normocephalic Neck: Supple Respiratory: Normal air movement Cardiovascular: Regular rate/rhythm, Normal S1 S2 Gastrointestinal: Soft and benign Musculoskeletal: No swelling - Studies Laboratory Data (last 24 hrs) 04/28/23 15:17: PT 11.7, INR 1.06 04/28/23 15:17: WBC 7.30, Hgb 10.2 L, Hct 31.2 L, Plt Count 210 04/28/23 15:17: Sodium 135 L, Potassium 4.9, BUN 13, Creatinine 1.15 H, Glucose 331 H, Magnesium 1.7, Total Bilirubin 0.3, AST 13 L, ALT 23, Alkaline Phosphatase 107 Assessment And Plan - Plan Assessment and Plan - Problems (Diagnosis) (1) Congestive heart failure Current Visit: Yes Status: Acute Qualifiers: Heart failure type: unspecified Heart failure chronicity: acute Qualified Code(s): I50.9 - Heart failure, unspecified (2) Hyperlipidemia Current Visit: Yes Status: Chronic Qualifiers: Hyperlipidemia type: unspecified Qualified Code(s): E78.5 - Hyperlipidemia, unspecified (3) Type 2 diabetes mellitus Current Visit: Yes Status: Chronic Qualifiers: Diabetes mellitus manager long term care insulin use: with mcfp use Diabetes mellitus complication status: with hyperglycemia Qualified Code(s): E11.65 - Type 2 diabetes mellitus with hyperglycemia; Z79.4 - [facility] (current) use of insulin Plan: Presently she is doing well since diuresis was started. Pending echocardiogram. Repeat lipid panel reviewed, no indications for changes to dose of statin therapy. Follow trend of kidney function We will continue Lasix therapy We will continue strict input and output monitoring. Photoengraving Machine Operator/Tender to evaluate for possible work-up of etiology of heart failure Discharge Plan: Home Plan to discharge in: 48 Hours Physician Review: Patient Assessed, Agree with Above Assessment and Plan
--- NOTE | 2023-04-29 14:18 | EKG ---
Test Date: 2023-04-28 Test Time: 16:06:42 Home Health Travel Pt: AYAD MEASUREMENT RESULTS: Intervals: Rate: 64 NC: 126 QRSD: 72 QT: 418 QTc: 431 [place]: P: 31 NC: 126 QRS: 23 T: 56 INTERPRETIVE STATEMENTS: Normal sinus rhythm Normal ECG Compared to ECG 08/07/2006 15:17:17 No significant changes Electronically Signed On 04-29-23 14:17:00 CDT by Kushal West
--- NOTE | 2023-04-29 14:47 | CON ---
Date of Consultation: 04/29/2023 Reason For Consultation: Heart failure. History Of Present Illness: This is a 68-year-old female, presented to the emergency room with signi ficant lower extremity edema, shortness of breath, and orthopnea. No known history of cardiac diseas e. She has history of hypertension, dyslipidemia, and diabetes. Denies having any chest pain, but s he has significant shortness of breath on minimal exertion. Past Medical History: As outlined above in the HPI; diabetes, hypertension, and dyslipidemia. Medications: Reviewed. Refer to reconciliation sheet for detailed list. Allergies: PENICILLIN. Family History: No premature coronary artery disease or cancer. Social History: She does not smoke or drink. Does not use any drugs. Review of Systems: All systems reviewed and they were negative except what mentioned in HPI. Physical Examination: Vital Signs: Reviewed. Head and Neck: Pupils are equal, reactive to light. Intact eye movements. No JVD. No cervical lym phadenopathy. Neck is supple. Thyroid is not enlarged. Lungs: Clear to auscultation bilaterally. No rhonchi, wheezing, or crackles. No accessory muscle u se. Heart: Regular rate and rhythm. No extra sounds. Abdomen: Soft, nontender. Bowel sounds positive. No organomegaly. No masses or hernia. No rigidi ty or rebound. Extremities: 1+ pitting edema bilaterally. No clubbing or cyanosis. Intact pulses. Skin: No rash. Neurologic: Alert, awake, oriented x3. No acute focal deficits appreciated. Investigations: BUN 12, creatinine 0.92, and hemoglobin is 10. NT-proBNP is 959. Troponin is negat nancy. Assessment And Recommendations: 1.Shortness of breath with lower extremity edema. Findings suggestive of congestive heart failure. The patient responded very well to Lasix. She feels better. Continue Lasix 40 mg IV q.12 hours. O btain an echocardiogram tomorrow and please trend 2 more sets of troponin. Further recommendations b ased on the echo results. 2.Hypertension. Blood pressure is controlled. 3.Dyslipidemia. Continue atorvastatin 40 mg at bedtime. SR/MODL Voice ID: [id number] Report ID: [id number]
[2023-04-30 06:16] LABS: Absolute Lymphocytes (CBC) 2.4 K/uL (0.7-4.9); Hematocrit 32.8 % (36.0-45.0); Lymphocytes % 28.3 % (15.3-44.8); MCV 84.8 fL (80-100); MPV 11.4 fL (7.6-11.3); RBC Red Blood Cell Count 3.87 M/uL (3.86-4.86)
[2023-04-30 06:27] LABS: Potassium 3.8 mEq/L (3.5-5.1)
[2023-04-30] MEDS: INSULIN -REGULAR HUMAN 50 UNIT/0.5 ML ML SQ SCH ×4 (07:30→21:32)
[2023-04-30] MEDS: INSULIN 70/30 100 UNITS/ML SQ SCH ×2 (08:00→16:46)
[2023-04-30] MEDS: ATORVASTATIN 40 MG TAB PO SCH (08:44)
[2023-04-30] MEDS: AMLODIPINE 10 MG TAB PO SCH (08:44)
[2023-04-30] MEDS: ENOXAPARIN 40 MG/0.4 ML SQ SCH (08:44)
[2023-04-30] MEDS: ASPIRIN EC 81 MG TAB PO SCH (08:44)
[2023-04-30] MEDS: carvediloL 25 MG TAB PO SCH ×2 (08:44→16:46)
[2023-04-30] MEDS: FUROSEMIDE 40 MG/4 ML VIAL IV SCH ×2 (08:45→16:46)
[2023-04-30] MEDS: LOSARTAN POTASSIUM 50 MG TABLET PO SCH (08:45)
--- NOTE | 2023-04-30 14:52 | P.CNS ---
Date of Consult: 04/30/23 Reason for Consult: Peripheral edema Requesting Physician: Galindo Lawson Primary Care Provider: Ashley Chief Complaint: New Onset CHF History of Present Illness: Pt is a 68 year old female with past medical history of insulin dependent type 2 diabetes per reports, hypertension who presented to the emergency department with complaints of bilateral leg swelling, weight gain and worsening MORAN over several weeks.mChest xray showed "diffuse prominence of the pulmonary interstitium likely reflecting edema." Chest CTA showed "negative for pulmonary embolism but it did reveal pulmonary edema with bilateral pleural effusions, moderate on the right and small on the left." Pt reports improving swelling and MORAN with diuresis in the hospital. Allergies Penicillins Allergy (Verified 03/09/23 15:08) Itching/Hives/Rash Home Medications: Aspirin [Aspirin EC 81 MG] 81 mg PO DAILY 03/09/23 Atorvastatin Calcium [Lipitor] 40 mg PO DAILY 03/09/23 Carvedilol [Coreg] 25 mg PO BIDWM 03/09/23 Glimepiride [Amaryl] 4 mg PO BIDWM 03/09/23 Insulin 70/30 NPH/Reg Human [Novolin 70/30*] 15 unit SQ BID 03/09/23 Losartan Potassium [Cozaar] 100 mg PO DAILY 03/09/23 Metformin HCl 1,000 mg PO BID 03/09/23 Amlodipine [Norvasc*] 10 mg PO DAILY 04/28/23 - Past Medical/Surgical History Diabetic: Yes -: Insulin Dependent Type 2 Diabetes -: Hypertension -: Hyperlipidemia -: Rt shoulder fracture sx Psychosocial/ Personal History: Patient is . - Social History Alcohol use: No CD- Drugs: No Caffeine use: No Place of Residence: Home Review of Systems General: As per HPI Eyes: Unremarkable ENT: Unremarkable Respiratory: Shortness of Breath Cardiovascular: Edema Gastrointestinal: Unremarkable Genitourinary: Unremarkable Musculoskeletal: Unremarkable Integumentary: Unremarkable Neurological: Unremarkable Physical Examination Temp Pulse Resp BP Pulse Ox 97.7 F 59 16 128/63 94 04/30/23 12:00 04/30/23 12:00 04/30/23 12:00 04/30/23 12:00 04/30/23 12:00 General: Alert, In no apparent distress, Oriented x3 HEENT: Atraumatic, Normocephalic Respiratory: Other (Diminished at bases) Cardiovascular: Regular rate/rhythm, Edema Gastrointestinal: Soft and benign, Non-distended Musculoskeletal: No tenderness, Swelling Integumentary: No breakdown, No significant lesion Neurological: Normal speech, Normal tone, Sensation intact Conclusions/Impression: A/P) 1. Serum Cr raised above reference range on admission -renal function tests stable during admission, renal imaging on CT scan was unremarkable, eGFR > 60 ml/min currently. 2. Ok to cont max dose ARB but recognize its physiologic effects on GFR to the tune of 5-15%/ 3. Pt's volume overload, pleural effusions NOS and peripheral edema appear to be related to CHF NOS but I do not see the results of an echo. 4. Switch to PO diuretic soon, add Spironolactone to her regimen. Monitor lytes 5. Check spot urine study to rule out any significant proteinuria. Albumin level on admission was not reduced and pt does not appear to have nephrotic syndrome as the cause behind her fluid overload. Javier Goddard MD, LIDIA
--- NOTE | 2023-04-30 18:29 | P.PN ---
Subjective Date of Service: 04/30/23 Primary Care Provider: Ashley Chief Complaint: New Onset CHF No acute events overnight. She reports that her shortness of breath is slightly improved. She reports her edema has improved. She denies any chest pain or palpitations. Review of Systems 10-point ROS is otherwise unremarkable Respiratory: Shortness of Breath Cardiovascular: Edema Physical Examination - Vital Signs Temperature: 98.5 F Blood Pressure: 124/59 Pulse: 64 Respirations: 16 Pulse Ox (%): 95 - Physical Exam General: Alert, In no apparent distress, Oriented x3 HEENT: Atraumatic, Sclerae nonicteric Neck: JVD distended Respiratory: Diminished, Crackles/rales (bibasilar) Cardiovascular: Regular rate/rhythm, Normal S1 S2, No gallops, No rubs, No murmurs, Edema (1-2+ BLE) Gastrointestinal: Normal bowel sounds, Soft and benign, Non-distended, No tenderness, No rebound, No guarding Musculoskeletal: No clubbing Integumentary: No rashes Neurological: Normal speech, Normal affect Assessment And Plan - Plan # Acute Decompensated Congestive Heart Failure with Unknown Ejection Fraction # Hypertension - Consult Cardiology - recommendations appreciated - Ordered transthoracic echocardiogram - Radiology: - Chest x-ray = "diffuse prominence of the pulmonary interstitium likely reflecting edema." - Bilateral lower extremity Doppler = "no DVT in either lower extremity." - CT abdomen/pelvis = "no acute intra-abdominal or pelvic finding. Anasarca. Findings at the liver and gallbladder likely related to heart failure." - CT chest angiogram = "negative for pulmonary embolism. Pulmonary edema with bilateral pleural effusions, moderate on the right and small on the left." - Diuresis with IV furosemide - Continue home amlodipine, carvedilol, losartan, spironolactone - Daily weights - Strict I/O - Cardiac diet, 1.5 L fluid restriction, 2 g Na restriction # Hyperglycemia in Type II Diabetes Mellitus - Correction scale insulin # Dyslipidemia - Continue home atorvastatin Emil Waller M.D.
[2023-05-01 02:20] LABS: UR MICROALBUMIN 4.2 mg/dL (< 1.9)
[2023-05-01 06:17] LABS: Magnesium 1.9 mg/dL (1.6-2.4); Potassium 3.7 mEq/L (3.5-5.1)
[2023-05-01] MEDS: ENOXAPARIN 40 MG/0.4 ML SQ SCH (08:25)
[2023-05-01] MEDS: FUROSEMIDE 40 MG/4 ML VIAL IV SCH (08:25)
[2023-05-01] MEDS: ATORVASTATIN 40 MG TAB PO SCH (08:25)
[2023-05-01] MEDS: LOSARTAN POTASSIUM 50 MG TABLET PO SCH (08:25)
[2023-05-01] MEDS: AMLODIPINE 10 MG TAB PO SCH (08:25)
[2023-05-01] MEDS: ASPIRIN EC 81 MG TAB PO SCH (08:25)
[2023-05-01] MEDS: INSULIN 70/30 100 UNITS/ML SQ SCH (08:26)
[2023-05-01] MEDS: carvediloL 25 MG TAB PO SCH (08:26)
[2023-05-01] MEDS: INSULIN -REGULAR HUMAN 50 UNIT/0.5 ML ML SQ SCH ×2 (08:26→11:58)
[2023-05-01 08:27] VITALS: BP 124/60
[2023-05-01] MEDS ORDERED: POTASSIUM CL SA 10 MEQ TAB PO ONE (09:00)
[2023-05-01] MEDS ORDERED: SPIRONOLACTONE 25 MG TABLET PO SCH (09:00)
[2023-05-01 09:07] VITALS: TEMP 97.8
[2023-05-01 09:33] VITALS: O2SAT 99
--- NOTE | 2023-05-01 12:54 | P.DS ---
Admission Date: 04/28/23 Discharge Date: 05/01/23 Primary Care Provider: Ashley Disposition: ROUTINE DISCHARGE Reason for Admission: New Onset CHF Consultations: 1. Cardiology 2. Nephrology Hospital Course: DIAGNOSES: # Acute Decompensated Diastolic Congestive Heart Failure with Preserved Ejection Fraction # Hypertension # Recent Helicobacter Pylori Infection s/p Triple Therapy # Hyperglycemia in Type II Diabetes Mellitus # Dyslipidemia HOSPITAL COURSE: Ms. Rowan Stubbs is a pleasant 68 year old female with a past medical history significant for type II diabetes mellitus and dyslipidemia who was admitted to the [facility] on 04/28/2023 for anasarca. She was admitted to the Medicine service. Upon further evaluation, her chest x- ray revealed, "diffuse prominence of the pulmonary interstitium likely reflecting edema." Her bilateral lower extremity Doppler revealed, "no DVT in either lower extremity." Her CT abdomen/pelvis revealed, "no acute intra- abdominal or pelvic finding. Anasarca. Findings at the liver and gallbladder likely related to heart failure." Her CT chest angiogram revealed, "negative for pulmonary embolism. Pulmonary edema with bilateral pleural effusions, moderate on the right and small on the left." She was diagnosed with an acute-onset congestive heart failure exacerbation. Cardiology and Nephrology were consulted, and she was evaluated by Dr. Pastor and Dr. Goddard, respectively. She was treated with IV diuretics and, over the course of her hospitalization, her symptoms improved significantly. Dr. Pastor has reviewed her echocardiogram and stated that she has mild diastolic dysfunction. He has cleared her for discharge with furosemide [address] Goddard has cleared her for discharge from his standpoint, with spironolactone and losartan. On 05/01/2023, she was seen on rounds and deemed medically stable for discharge. She was discharged with instructions to schedule follow-up appointments with her PCP (Dr. Ramirez), with Cardiology (Dr. Pastor), and with Nephrology (Dr. Goddard). She was provided prescriptions for furosemide and spironolactone. She and her family members were given the opportunity to ask questions and reported no further questions. Furthermore, all questions were answered to the best of my ability. A copy of this discharge summary will be sent to the above providers to facilitate continuity of care. Today, I personally spent 25 minutes on her case, of which greater than 50% of the time was spent in patient education, counseling, and coordination of care as described above. - Physical Exam General: Alert, In no apparent distress, Oriented x3 HEENT: Atraumatic, Sclerae nonicteric Neck: JVD not distended Respiratory: Diminished, Clear to auscultation, without wheezes, rhonchi, or rales Cardiovascular: Regular rate/rhythm, Normal S1 S2, No gallops, No rubs, No murmurs, Edema (1+ BLE) Gastrointestinal: Normal bowel sounds, Soft and benign, Non-distended, No tenderness, No rebound, No guarding Musculoskeletal: No clubbing Integumentary: No rashes Neurological: Normal speech, Normal affect Vital Signs/Physical Exam: Temp Pulse Resp BP Pulse Ox 97.8 F 57 17 124/60 97 05/01/23 08:00 05/01/23 08:26 05/01/23 08:00 05/01/23 08:26 05/01/23 08:00 Laboratory Data at Discharge: WBC 8.60 thou/uL (4.3-10.9) 04/30/23 05:43 Hgb 11.1 g/dL (12.0-15.0) L D 04/30/23 05:43 Hct 32.8 % (36.0-45.0) L 04/30/23 05:43 Plt Count 217 thou/uL (152-406) 04/30/23 05:43 PT 11.7 SECONDS (9.5-12.5) 04/28/23 15:17 INR 1.06 04/28/23 15:17 Sodium 139 mEq/L (136-145) 05/01/23 05:32 Potassium 3.7 mEq/L (3.5-5.1) 05/01/23 05:32 BUN 20 mg/dL (7-18) H 05/01/23 05:32 Creatinine 1.04 mg/dL (0.55-1.02) H 05/01/23 05:32 Glucose 117 mg/dL (74-106) H 05/01/23 05:32 Phosphorus 3.6 mg/dL (2.5-4.9) 04/29/23 04:07 Magnesium 1.9 mg/dL (1.6-2.4) 05/01/23 05:32 Total Bilirubin 0.3 mg/dL (0.2-1.0) 04/28/23 15:17 AST 13 U/L (15-37) L 04/28/23 15:17 ALT 23 U/L (13-56) 04/28/23 15:17 Alkaline Phosphatase 107 U/L (45-117) 04/28/23 15:17 Triglycerides 109 mg/dL (<150) 04/29/23 04:07 Cholesterol 116 mg/dL (<200) 04/29/23 04:07 HDL Cholesterol 45 mg/dL (40-60) 04/29/23 04:07 Cholesterol/HDL Ratio 2.58 04/29/23 04:07 Home Medications: Aspirin [Aspirin EC 81 MG] 81 mg PO DAILY 03/09/23 Atorvastatin Calcium [Lipitor*] 40 mg PO DAILY 03/09/23 Carvedilol [Coreg] 25 mg PO BIDWM 03/09/23 Glimepiride [Amaryl] 4 mg PO BIDWM 03/09/23 Insulin 70/30 NPH/Reg Human [Novolin 70/30*] 15 unit SQ BID 03/09/23 Losartan Potassium [Cozaar] 100 mg PO DAILY 03/09/23 Metformin HCl 1,000 mg PO BID 03/09/23 Amlodipine [Norvasc*] 10 mg PO DAILY 04/28/23 Furosemide 40 mg PO DAILY #30 tab 05/01/23 Spironolactone [Aldactone*] 25 mg PO DAILY #30 tab 05/01/23 New Medications: Spironolactone [Aldactone*] 25 mg PO DAILY #30 tab Furosemide 40 mg PO DAILY #30 tab Physician Discharge Instructions: 1. Please call and schedule a follow-up appointment with your PCP (Dr. Ramirez) in 3-5 days - Please have your PCP check to make sure your H. Pylori infection has been fully treated 2. Please call and schedule a follow-up appointment with Cardiology (Dr. Pastor) in 5-7 days 3. Please call and schedule a follow-up appointment with Nephrology (Dr. Goddard) in 5-7 days Diet: AHA Activity: Fall precautions Followup: Lucy Ramirez MD [Primary Care Provider] - Guillermo Pastor MD [ACTIVE - CAN ADMIT] - Javier Goddard [ACTIVE - CAN ADMIT] - Time spent managing pt's care (in minutes): 25
--- NOTE | 2023-05-01 13:19 | RAD REPORT ---
EXAM DESCRIPTION: RAD - Chest Single View - 05/01/2023 1:12 pm CLINICAL HISTORY: follow-up pulm edema Chest pain. COMPARISON: Chest Single View dated 04/28/2023; Chest Single View dated 09/05/2018 FINDINGS: Portable technique limits examination quality. Prominent bilateral interstitial markings have mildly improved since 04/28/2023 study. The heart size is mildly enlarged. No displaced fractures. IMPRESSION: Mild improvement in lung aeration since comparative study.
[2023-05-01] MEDS ORDERED: ALBUTEROL 2.5 MG/3 ML NEB SOL NEB PRN (14:00)
--- NOTE | 2023-05-02 07:39 | ECHO ---
HEIGHT: 4 ft 11 in WEIGHT: 121 lb 1.6 oz DATE OF STUDY: 05/01/[address]: Mary Escobedo 2-DIMENSIONAL: YES M.MODE: YES DOPPLER: YES COLOR FLOW: YES TDS: PORTABLE: YES DEFINITY: BUBBLE STUDY: DIAGNOSIS: NEW ONSET CONGESTIVE HEART FAILURE CARDIAC HISTORY: CATHERIZATION: SURGERY: PROSTHETIC VALVE: PACEMAKER: MEASUREMENTS (cm) DIASTOLIC (NORMALS) SYSTOLIC (NORMALS) IVSd 0.9 (0.6-1.2) LA Diam 3.6 (1.9-4.0) LVEF 68% LVIDd 4.0 (3.5-5.7) LVIDs 2.5 (2.0-3.5) %FS 38% LVPWd 1.0 (0.6-1.2) Ao Diam 2.2 (2.0-3.7) 2 DIMENSIONAL ASSESSMENT: RIGHT ATRIUM: NORMAL LEFT ATRIUM: NORMAL RIGHT VENTRICLE: NORMAL LEFT VENTRICLE: NORMAL TRICUSPID VALVE: NORMAL MITRAL VALVE: NORMAL PULMONIC VALVE: NORMAL AORTIC VALVE: NORMAL PERICARDIAL EFFUSION: NONE AORTIC ROOT: NORMAL LEFT VENTRICULAR WALL MOTION: MILD DIASTOLIC DYSFUNCTION DOPPLER/COLOR FLOW: MILD TRICUSPID REGURGITATION. NORMAL RIGHT VENTRICULAR SYSTOLIC PRESSURE COMMENTS: 1. DIASTOLIC DYSFUNCTION 2. NORMAL EJECTION FRACTION 3. MILD TRICUSPID REGURGITATION TECHNOLOGIST: NORBERTO GREY
--- NOTE | 2023-05-02 11:59 | PN ---
Date of Progress Note: 04/30/2023 The patient was admitted on 04/28/2023 and has been followed by Dr. West for new onset congestive h eart failure, classic symptoms. I saw her on 04/30/2023. She has a history of hypertension, dyslipi demia. She has diuresed significantly and feeling much better. Echocardiogram showed normal ejectio n fraction with mild diastolic dysfunction. I think she can go home on low-dose beta-josé miguel and [place], and I think we should consider having her do an outpatient stress test if she has not had 1 in e near future. We will sign off her case for now. YONG Voice ID: [id number] Report ID: [id number]
== END 2023-05-01 15:34 | disposition home or self-care (01) | DRG 291 ==
LOC: ER 13:39 → ERHOLD 18:57 → 4TH 19:21
PROVIDERS: ADMIT Internal Medicine Nephrology; ATTEND Internal Medicine
DX: I11.0 Hypertensive heart disease with heart failure (principal); I50.33 Acute on chronic diastolic (congestive) heart failure; E11.65 Type 2 diabetes mellitus with hyperglycemia; J30.9 Allergic rhinitis, unspecified; G47.00 Insomnia, unspecified; E78.5 Hyperlipidemia, unspecified; G89.29 Other chronic pain; M54.9 Dorsalgia, unspecified; B96.81 Helicobacter pylori [H. pylori] as the cause of diseases classified elsewhere; Z88.0 Allergy status to penicillin; Z79.4 Long term (current) use of insulin; Z79.82 Long term (current) use of aspirin; Z79.84 Long term (current) use of oral hypoglycemic drugs; Z79.899 Other long term (current) drug therapy
CPT/HCPCS: 36415; 71045; 71275; 74177; 80048; 80061; 80076; 82043; 82570; 82947; 83036; 83735; 83880; 84100; 84156; 84439; 84443; 84484; 85025; 85610; 93005; 93306; 93970; 94760; 96374; 99285; J1650; J1815; J1940; J3475; Q9967